=== PATIENT | female | born 1990 | race Caucasian/White ===

== ENCOUNTER 2017-02-23 14:03 | Inpatient (IN) | payer OTHER ==
[~2017-02-23] VITALS: Ht 167.6 cm; Wt 54.4 kg
[2017-02-23 16:16] LABS: *URINE HCG, QUAL NEGATIVE (NEGATIVE)
--- NOTE | 2017-02-23 16:25 | NUR ---
PRE ADMISSION 26 Year old female, alert and oriented x4, noted hyperverbal and restless. Patient admited from [facility] in [place], prior to admission there patient reports she is homeless. Patient reports prior to being homeless living with in an apartment with boyfriend. Patients vital signs: 129/77, p: 76, t: 98.0 r: 16 o2 sat: 100% room air. Patient reports allergies to: raglan, and keppra. Patient to be admitting [facility], patient was seen and examined by Dr. de la garza at intake office. Will continue to monitor closely.
[2017-02-23 16:28] LABS: *AMPHETAMINE, URINE NEGATIVE (NEGATIVE); *BARBITURATE, URINE POSITIVE (NEGATIVE); *CANNABINOID, URINE NEGATIVE (NEGATIVE); *COCCAINE, URINE NEGATIVE (NEGATIVE); *OPIATE, URINE NEGATIVE (NEGATIVE); *PHENCYCLIDINE SCREEN,URINE NEGATIVE (NEGATIVE)
--- NOTE | 2017-02-23 16:35 | NUR ---
ADMISSION patient arrived to [facility] at 1635, noted with steady gait, ambulating ad sharon. patients body search completed by female intake staff no contraband found. Patients body assessment completed patient with intact skin, has tape pelletier on left arm per patient had a mid line there that was removed on discharge from [facility] in [place]. No bruising, discoloration or skin break down noted. Patient with multiple tattoos on right arm. Patient reports substance use of: Xanax, began using at the age of 19, reports using 6, 4 mg tabs daily IV for six months, last used 01/26/2017, heroin began using at [place] age of 16 10-12 grams IV since november 2015, last used 02/12/2017, methamphetamine began using at the age of 19 has been consuming 1gram-3 grams once a week since november 2015, last used on 02/12/2017, reports occasional use of cocaine. Per patient she was a treatment center ([facility] [place]) on 02/13/2017, where she was administered Klonopin, unknown amount, per patient was there for a few hours, then left to: [facility], patient reports she was there for 7 days (02/13/2017-02/21/2017), from there patient reports she was taken to the hospital because she was having seizures, was at the hospital on ( 02/21/2017-02/23/2017), reports at the hospital she was being administered Valium, unknown strength. Patient brought with her discharge instructions from: [facility] in [place], with new prescriptions, patient currently states she take Prilosec 20mg PO In the morning, but does not recall last time she took it. Patient reports past medical history of: anxiety, and bipolar d/o diagnosed at the age of 14. Patient patient her primary care physician is Dr. Hema Hughes in [facility]. Patient reports she has had 15 episodes of seizures d/t withdrawal, per patient she has an aura before she has a seizure. Patient reports past medical history of: anxiety and bipolar d/o both diagnosed at the age of 14. Patient reports both parent have history of substance abuse, and brother has history of substance abuse. Patient weights 5 feet 6 inches and weighs 120 lbs. Patients pupils are dilated, respirations are even and unlabored, no SOB, lungs clear upon auscultating. Abdomen is soft and non distended. No episodes of vomiting noted, bowel sounds heard in all quadrants. Fall and seizure precautions observed at all times, psychiatrist notified of new admission, will continue to monitor closely.
[2017-02-23 17:00] VITALS: BP 129/77
[2017-02-23] MEDS ORDERED: OMEP20TA20 PO (17:13)
[2017-02-23] MEDS ORDERED: PHEN100C4 PO (17:13)
--- NOTE | 2017-02-23 17:13 | NUR ---
ONE TIME DOSE OF PHENOBARBITAL Per patient reporting she feels an aura and is about to have a seizure, patient presenting with: restlessness, flushed, moderately dilated pupils, mild bone and joint aches, stomach cramps, increase anxiety and fine tremors with ciwa score of: 10 and cow score of: 13. Per MD patient to receive a one time dose of phenobarbital 90mg PO as ordered, by MD. Per Md to continue to monitor closely. patient placed on 1:1 for safety precautions, fall and seizure precautions in place. will continue to monitor.
[2017-02-23] MEDS ORDERED: CARB200T PO (17:16)
--- NOTE | 2017-02-23 17:48 | NUR ---
PRN SUBUTEX Per MD for patient with cow score of: 13, patient to be administered PRN Subutex 4mg SL, medication was administered as ordered, will monitor effectiveness.
--- NOTE | 2017-02-23 18:23 | NUR ---
PRN VALIUM Patient continues to verbalize she feels she is about to have a seizure. Patient reassessed noted with tremors that can be felt but nto seen, mild nausea, sweats, moderate anxiety, fidgety with ciwa score of: 12, as per MD goldberg to administer Valium 10mg PO as ordered, medication administered as ordered, continues on 1:1 sitter for safety precautions, will continue to monitor closely. Will endorse to night auditor nurse, to monitor effectiveness of valium.
[2017-02-23 18:30] LABS: BASOPHILS % (AUTO) 0.5 % (0.0-2.0); EOSINOPHILS # (AUTO) 0.1 K/uL (0.0-0.7); HEMATOCRIT 35.2 % (37-47); HEMOGLOBIN 11.4 G/DL (12.0-16.0); LYMPHOCYTES # (AUTO) 2.4 K/UL (0.8-4.8); LYMPHOCYTES % (AUTO) 30.8 % (20.5-51.5); MEAN CORPUSCULAR HEMOGLOBIN 28.3 UUG (27.0-31.0); MEAN CORPUSCULAR HGB CONC 33 g/dL (32.0-37.0); MONOCYTES # (AUTO) 0.7 K/UL (0.1-1.30); MONOCYTES % (AUTO) 8.4 % (0.0-11.0); NEUTROPHILS # (AUTO) 4.6 K/UL (1.8-8.9); NEUTROPHILS % (AUTO) 59.3 % (38.5-71.5); PLATELET COUNT (AUTO) 359 K/UL (150-450); RED BLOOD CELL COUNT(AUTO) 4.04 MIL/UL (4.2-5.4); WHITE BLOOD COUNT (AUTO) 7.8 K/UL (4.0-11.2)
[2017-02-23 18:37] LABS: ALANINE AMINOTRANSFERASE 24 U/L (14-59); ALKALINE PHOSPHATASE 66 U/L (50-136); ASPARTATE AMINOTRANSFERASE 14 U/L (15-37); BILIRUBIN,TOTAL 0.1 mg/dL (0.2-1.0); CARBON DIOXIDE 34 mmol/L (21-32); CHLORIDE 105 mmol/L (98-107); CREATININE 0.5 mg/dL (0.6-1.3); ETHANOL < 3 MG/DL (0-0); GLUCOSE 84 mg/dL (74-106); MAGNESIUM 1.9 mg/dL (1.8-2.4); PHENYTOIN (DILANTIN) 14.9 ug/mL (10.0-20.0); POTASSIUM 4.5 mmol/L (3.5-5.1); TOTAL PROTEIN, SERUM 6.4 g/dL (6.4-8.2); UREA NITROGEN, BLOOD 11 mg/dL (7-18)
--- NOTE | 2017-02-23 18:38 | NUR ---
SUBUTEX REASSESSMENT Medication effective, patient with cow score of: 11, no bone or joint aches, decrease in tremors, will continue to monitor closely.
--- NOTE | 2017-02-23 18:54 | NUR ---
END OF SHIFT/VALIUM REASSESSMENT Patient with admitting Dx: opiate/bzo dependence. Patient currently with 1: 1 sitter at bedside for safety precautions, patient on fall and seizure precautions observed at all times. Padded side rails And up x2. Per Dr. frederic Arshad to be reassessed with in 30 minutes of administration, patient was reassessed and ciwa score remains at 12, MD is aware. Patient is scheduled to begin a 5 day phenobarbital taper tomorrow, and 5 day Subutex taper tomorrow, has PRN Valium. first induction dose of phenobarbital administered at 1713 as per Md orders, will monitor cow/ciwa/vital signs every two hours. Patient endorsement report given to package liner nurse, all pertinent information discussed. fall and seizure precaution observed at all times.
[2017-02-23 18:59] LABS: THYROID STIMULATING HORMONE 1.626 mIU/mL (0.358-3.740)
--- NOTE | 2017-02-23 19:25 | NUR ---
Start of Shift Pt is a 26 year old female admitted for Benzo/opiate dependence, placed 5 day Phenobarbital and 5 day Subutex, to be started on 02/24/2017. Pt reported use of Xanax 6 (4mg) IV daily, Heroin 10 -12 g IV daily, meth 1-3g IV and occasional use of cocaine and crack. PMH: anxiety, dipolar disorder, Hepatitis C and seizure history. Pt reports allergies to baclofen, levetiracetam and metoclopramide. Upon assessment, pt is in room, in bed alert/oriented x3, reports feeling body aches throughout body, reports feeling anxious, speaks in loud tone of voice, respirations even/unlabored, reports feeling nauseous, no vomiting episodes, skin flushed, medications due, sitter at bedside for safety, safety precautions in place, will continue to monitor.
--- NOTE | 2017-02-23 19:33 | NUR ---
Valium 10mg x1 CIWA 16 pt reports feeling anxious, speech is rapid, pt is fidgeting, reports nausea, tremors felt, visible sweat, flushed face, sensitivity to light. Valium 10mg x1 administered. Safety precautions in place, will continue to monitor.
[2017-02-23 20:00] VITALS: BP 102/70
--- NOTE | 2017-02-23 20:13 | NUR ---
Robaxin 750mg PRN administered for complaints of body aches. Safety measures in place, will continue to monitor.
--- NOTE | 2017-02-23 20:30 | NUR ---
Pt continues with a CIWA 16, continues to report anxiety, speech is rapid, pt is fidgeting, is restless with body aches, tremors felt, visible sweat, flushed face, sensitivity to light. Ativan 2mg/1ml inj x1 and Toradol 30mg/1ml inj PRN administered. Safety precautions in place, will continue to monitor.
--- NOTE | 2017-02-23 21:00 | NUR ---
Ativan and Toradol effective. Pt reports less body aches. Is in bed, with sitter at bed side. CIWA 11 and COWS 10
[2017-02-23 22:00] VITALS: BP 103/73
--- NOTE | 2017-02-23 22:38 | NUR ---
Seizure MARINE STEAM FITTER notified nurse to room due to pt stating I dont feel well. Nurse at bedside immediately pt is unresponsive, Charge nurse called to pt room. At 2237, Pt experienced first seizure that lasted approximately 1 minute pt placed on left side, Non rebreather mask on with intermittent suction throughout all seizure episodes. HR 116, O2 100% At 2239, rapid response called, Pt experienced second seizure that lasted approximately 2 minutes, made aware, with orders to give Ativan IM 2mg. Rapid response team and house sup on the unit at 2241. At 2243, pt experienced third seizure that lasted approximately 1 minute, non rebreather mask with intermittent suctioning. HR 124, O2 100% At 2246, Pt experienced fourth seizure that lasted approximately 1 minute, Ativan 2mg IM administered in right glut at 2247. HR 136, O2 100% At 2250, pt experienced fifth seizure that lasted approximately 45 seconds. BP 129/62, HR 112, O2 100% At 2252, pt experienced sixth seizure that lasted approximately 1 minute and 15 seconds, non rebreather mask with intermittent suctioning. HR 117, O2 100% At 2256, pt experienced seventh seizure that lasted approximately 1 minute 30 seconds. made aware with new order of Ativan. Ativan 2mg IM administered in right glut at 2257. HR 131, O2 100% At 2303, pt experienced eighth seizure that lasted approximately 45 seconds. HR 118, O2 100% At 2306, pt experienced ninth seizure that lasted approximately 1 min 6 seconds. HR 106, O@ 100%. MD made aware of ineffective Ativan, New order to transfer pt to the ER. Pt experienced a total of 9 seizures, pt in postictal state which lasted about 8 minutes, then was AAOx3 and knew where she was and why. BP 110/57, HR 126, O2 100%
[2017-02-23 22:51] VITALS: BP 129/62
[2017-02-23 23:15] VITALS: BP 110/57
--- NOTE | 2017-02-23 23:20 | NUR ---
Pt transferred to the ER. Report given to ER nurse.
[2017-02-24] MEDS ORDERED: POLY255P2 PO (01:55)
[2017-02-24] MEDS ORDERED: DIPH25CA83 PO (01:55)
[2017-02-24] MEDS ORDERED: PHEN97.22 PO (01:55)
[2017-02-24] MEDS ORDERED: PHEN60TA11 PO ×2 (01:55)
[2017-02-24] MEDS ORDERED: DICY20TA11 PO (01:55)
[2017-02-24] MEDS ORDERED: MAGN400O6 PO (01:55)
[2017-02-24] MEDS ORDERED: PHEN100C4 PO (01:55)
[2017-02-24] MEDS ORDERED: PANT40TA4 PO (01:55)
[2017-02-24] MEDS ORDERED: ZOFRAN IM (01:55)
[2017-02-24] MEDS ORDERED: CLON0.1T PO (01:55)
[2017-02-24] MEDS ORDERED: DIAZ5TAB4 PO (01:55)
[2017-02-24] MEDS ORDERED: LORAZEPAM IM (01:55)
[2017-02-24] MEDS ORDERED: ACET-2154 PO (01:55)
[2017-02-24] MEDS ORDERED: BUPR2TAB3 SL (01:55)
[2017-02-24] MEDS ORDERED: IBUP-1955 PO (01:55)
[2017-02-24] MEDS ORDERED: LOPE2TAB25 PO ×2 (01:55)
[2017-02-24] MEDS ORDERED: MULT1TAB73 PO (01:55)
[2017-02-24] MEDS ORDERED: MAG30ORA PO (01:55)
[2017-02-24] MEDS ORDERED: METH-406 PO (01:55)
[2017-02-24] MEDS ORDERED: DIAZ10TA4 PO (01:55)
[2017-02-24] MEDS ORDERED: BUPR8TAB4 SL ×4 (01:55)
[2017-02-24] MEDS ORDERED: PHEN30TA40 PO ×3 (01:55)
== END 2017-02-23 23:20 | disposition short-term general hospital (02) | DRG 897 ==
LOC: SRC 15:21
PROVIDERS: ADMIT Internal Medicine; ATTEND Internal Medicine
PROC: HZ2ZZZZ Detoxification Services for Substance Abuse Treatment (ICD-10-PCS; principal; 2017-02-23)
DX: F13.232 Sedative, hypnotic or anxiolytic dependence with withdrawal with perceptual disturbance (principal); F11.23 Opioid dependence with withdrawal; G40.919 Epilepsy, unspecified, intractable, without status epilepticus; F15.20 Other stimulant dependence, uncomplicated; F31.9 Bipolar disorder, unspecified; K27.7 Chronic peptic ulcer, site unspecified, without hemorrhage or perforation; Z91.5 Personal history of self-harm; Z81.1 Family history of alcohol abuse and dependence; Z59.0 Homelessness; K21.9 Gastro-esophageal reflux disease without esophagitis; F17.210 Nicotine dependence, cigarettes, uncomplicated; F90.9 Attention-deficit hyperactivity disorder, unspecified type; B19.20 Unspecified viral hepatitis C without hepatic coma; I49.9 Cardiac arrhythmia, unspecified
CPT/HCPCS: 80307; 83735; 84443; 84703; 85025; 86592; 86705; 86803; 87340; 87806; 93005; A4663; G0480; J1885; J2060; J8499

== ENCOUNTER 2017-02-23 23:21 | Inpatient (IN) | payer OTHER ==
[~2017-02-23] VITALS: Ht 162.6 cm; Wt 61.2 kg
[~2017-02-23 23:21] MED LIST: CARB200T PO; OMEP20TA20 PO; PHEN100C4 PO
[2017-02-23] MEDS ORDERED: IV NORMAL SALINE 1000 ML BAG IV ONE (23:30)
[2017-02-23 23:54] LABS: BASOPHILS % (AUTO) 0.5 % (0.0-2.0); EOSINOPHILS # (AUTO) 0.1 K/uL (0.0-0.7); EOSINOPHILS % (AUTO) 1.1 % (0.0-7.0); HEMATOCRIT 33.6 % (37-47); HEMOGLOBIN 10.9 G/DL (12.0-16.0); LYMPHOCYTES # (AUTO) 3.1 K/UL (0.8-4.8); LYMPHOCYTES % (AUTO) 33.3 % (20.5-51.5); MEAN CORPUSCULAR HEMOGLOBIN 28.3 UUG (27.0-31.0); MEAN CORPUSCULAR HGB CONC 33 g/dL (32.0-37.0); MEAN CORPUSCULAR VOLUME 87.1 FL (81.0-99.0); MONOCYTES # (AUTO) 0.9 K/UL (0.1-1.30); MONOCYTES % (AUTO) 9.8 % (0.0-11.0); NEUTROPHILS # (AUTO) 5.2 K/UL (1.8-8.9); NEUTROPHILS % (AUTO) 55.3 % (38.5-71.5); PLATELET COUNT (AUTO) 332 K/UL (150-450); RED BLOOD CELL COUNT(AUTO) 3.86 MIL/UL (4.2-5.4); WHITE BLOOD COUNT (AUTO) 9.3 K/UL (4.0-11.2)
[2017-02-24 00:08] LABS: ALANINE AMINOTRANSFERASE 24 U/L (14-59); ALKALINE PHOSPHATASE 63 U/L (50-136); ASPARTATE AMINOTRANSFERASE 16 U/L (15-37); BILIRUBIN,DIRECT < 0.1 mg/dL (0.0-0.2); BILIRUBIN,TOTAL 0.1 mg/dL (0.2-1.0); CARBON DIOXIDE 33 mmol/L (21-32); CHLORIDE 105 mmol/L (98-107); CREATININE 0.5 mg/dL (0.6-1.3); GLUCOSE 85 mg/dL (74-106); PHENOBARBITAL 26.1 ug/mL (15.0-39.0); POTASSIUM 3.8 mmol/L (3.5-5.1); TOTAL PROTEIN, SERUM 6.2 g/dL (6.4-8.2); UREA NITROGEN, BLOOD 13 mg/dL (7-18); VALPROIC ACID < 3 ug/mL (50-100)
[2017-02-24 00:09] LABS: ETHANOL < 3 MG/DL (0-0)
--- NOTE | 2017-02-24 00:40 | NUR ---
PATIENT IS UNABLE TO PROVIDE URINE. F/C INSERTED USING STERILE TECHNIQUE. URNE SAMPLE SENT.
[2017-02-24 00:46] LABS: *BILIRUBIN,URIN NEGATIVE (NEGATIVE); *BLOOD, URINE NEGATIVE (NEGATIVE); *CLARITY,URINE CLEAR (CLEAR); *COLOR,URINE YELLOW (YELLOW); *KETONES,URINE NEGATIVE (NEGATIVE); *PROTEIN,URINE NEGATIVE (NEGATIVE); *UROBILINOGEN,URINE 0.2 E.U./dl (NORMAL); BACTERIA,URINE NONE SEEN /HPF (NONE SEEN); LEUKOCYTE ESTERASE ,URINE NEGATIVE (NEGATIVE); NITRITE, URINE NEGATIVE (NEGATIVE); UGLUCOSE NEGATIVE (NEGATIVE)
[2017-02-24 00:47] LABS: *URINE HCG, QUAL NEGATIVE (NEGATIVE); RBC,URINE NONE SEEN /HPF (0-3); SQUAMOUS EPITHELIAL CELL,UR NONE SEEN /HPF (NONE SEEN); WBC,URINE 0-3 /HPF (0-3)
[2017-02-24 01:16] LABS: *AMPHETAMINE, URINE NEGATIVE (NEGATIVE); *BARBITURATE, URINE POSITIVE (NEGATIVE); *CANNABINOID, URINE NEGATIVE (NEGATIVE); *COCCAINE, URINE NEGATIVE (NEGATIVE); *OPIATE, URINE NEGATIVE (NEGATIVE); *PHENCYCLIDINE SCREEN,URINE NEGATIVE (NEGATIVE)
--- NOTE | 2017-02-24 01:25 | NUR ---
PATIENT BROUGHT TO CT SCAN.
--- NOTE | 2017-02-24 01:40 | NUR ---
DR. VASQUEZ NOTIFED OF BP.
[2017-02-24] MEDS ORDERED: IV NORMAL SALINE 1000 ML BAG IV ONE (01:45)
[2017-02-24] MEDS ORDERED: CLON0.1T PO (01:55)
[2017-02-24] MEDS ORDERED: PHEN97.22 PO (01:55)
[2017-02-24] MEDS ORDERED: MAG30ORA PO (01:55)
[2017-02-24] MEDS ORDERED: BUPR2TAB3 SL (01:55)
[2017-02-24] MEDS ORDERED: MULT1TAB73 PO (01:55)
[2017-02-24] MEDS ORDERED: PANT40TA4 PO (01:55)
[2017-02-24] MEDS ORDERED: BUPR8TAB4 SL ×4 (01:55)
[2017-02-24] MEDS ORDERED: ZOFRAN IM (01:55)
[2017-02-24] MEDS ORDERED: DIPH25CA83 PO (01:55)
[2017-02-24] MEDS ORDERED: LORAZEPAM IM (01:55)
[2017-02-24] MEDS ORDERED: DIAZ5TAB4 PO (01:55)
[2017-02-24] MEDS ORDERED: MAGN400O6 PO (01:55)
[2017-02-24] MEDS ORDERED: POLY255P2 PO (01:55)
[2017-02-24] MEDS ORDERED: IBUP-1955 PO (01:55)
[2017-02-24] MEDS ORDERED: ACET-2154 PO (01:55)
[2017-02-24] MEDS ORDERED: LOPE2TAB25 PO ×2 (01:55)
[2017-02-24] MEDS ORDERED: PHEN30TA40 PO ×3 (01:55)
[2017-02-24] MEDS ORDERED: PHEN100C4 PO (01:55)
[2017-02-24] MEDS ORDERED: PHEN60TA11 PO ×2 (01:55)
[2017-02-24] MEDS ORDERED: METH-406 PO (01:55)
[2017-02-24] MEDS ORDERED: DICY20TA11 PO (01:55)
[2017-02-24] MEDS ORDERED: DIAZ10TA4 PO (01:55)
--- NOTE | 2017-02-24 02:10 | NUR ---
Pt. admitted to TELE , under care of Dr. RUSH Belongs List completed
[2017-02-24 03:53] VITALS: BP 100/61
[2017-02-24] MEDS ORDERED: LORAZEPAM 2 MG/1 ML VIAL IV PRN ×2 (05:15)
--- NOTE | 2017-02-24 05:25 | NUR ---
NOTIFY DR RUSH REGARDING THE AGITATION AND ANXIETY EPISODES WITH ORDERS.
[2017-02-24] MEDS ORDERED: ACETAMINOPHEN 325 MG TABLET PO PRN (05:45)
[2017-02-24] MEDS ORDERED: POLYETHYLENE GLYCOL 3350 238 GM POWDER PO PRN (05:45)
[2017-02-24] MEDS ORDERED: METHOCARBAMOL 750 MG TABLET PO PRN (05:45)
[2017-02-24] MEDS ORDERED: IBUPROFEN 600 MG TABLET PO PRN (05:45)
[2017-02-24] MEDS ORDERED: [UNRECOGNIZED DRUG - REMARK] PO PRN (05:45)
[2017-02-24] MEDS ORDERED: MAGNESIUM HYDROXIDE 30 ML LIQUID UDC PO PRN (05:45)
[2017-02-24] MEDS ORDERED: MAG HYDROX/AL HYDROX/SIMETH 30 ML LIQUID UDC PO PRN (05:45)
[2017-02-24] MEDS ORDERED: LORAZEPAM 2 MG/1 ML VIAL ONE (05:46)
[2017-02-24] MEDS ORDERED: ONDANSETRON 4 MG/2 ML VIAL IV PRN (06:00)
--- NOTE | 2017-02-24 06:13 | NUR ---
PATIENT SLEPT FOR FEW HOURS, NO SOB NO CHEST PAIN, RHYTHM IS SINUS RHYTHM 92, STILL WITH EPISODE OF ANXIETY, WILL MEDICATE ORDERED, BODY CHECK WAS DONE, SKIN CLEAR, WITH TATOO NOTED ON WHOLE LEFT ARM , AND OTHER PLACES, NO FURTHER EPISODES OF SEIZURES NOTED, PADDED SIDERAILS IN PLACE, CALL LIGHT WITHIN REACH. CONT TO MONITOR.
[2017-02-24] MEDS: IV D5/ 0.9% NACL 1,000 ML IV PRN ×2 (06:22→21:51)
--- NOTE | 2017-02-24 07:00 | NUR ---
Received report from assistant shift supervisor, bed in low position, side rails up x2. Patient is sleeping. No evidence of distress noted.
[2017-02-24] MEDS ORDERED: diphenhydrAMINE 50 MG CAPSULE PO PRN (07:30)
[2017-02-24] MEDS: PANTOPRAZOLE SODIUM 40 MG TABLET.DR PO SCH (07:47)
[2017-02-24] MEDS: MULTIVITAMINS,THERAPEUTIC TABLET PO SCH (08:00)
[2017-02-24] MEDS: PHENYTOIN SODIUM EXTENDED 100 MG CAPSULE.SA PO SCH ×2 (08:00→17:38)
[2017-02-24] MEDS: CARBAMAZEPINE 200 MG TABLET PO SCH ×2 (08:00→17:38)
[2017-02-24] MEDS ORDERED: MIRALAX 17 GM POWD.PACK PO PRN (08:16)
[2017-02-24] MEDS ORDERED: PHENOBARBITAL 60 MG TABLET PO SCH ×2 (09:00)
[2017-02-24] MEDS ORDERED: Medication Not On Formulary EA (Multivitamins (Multivitamin) 1 EACH) PO SCH (09:00)
[2017-02-24] MEDS ORDERED: KETOROLAC TROMETHAMINE 15 MG INJ IVP ONE (09:30)
[2017-02-24] MEDS ORDERED: DIAZEPAM 10 MG TABLET PO PRN ×2 (11:15)
[2017-02-24] MEDS ORDERED: DIAZEPAM 5 MG TABLET PO PRN (11:15)
[2017-02-24] MEDS: PHENOBARBITAL 60 MG TABLET PO SCH ×3 (13:19→21:51)
[2017-02-24] MEDS ORDERED: DIAZEPAM 10 MG TABLET PO STA (16:13)
[2017-02-24 18:29] VITALS: BP 114/71
--- NOTE | 2017-02-24 19:08 | NUR ---
Patient has had multiple episodes of extreme anxiety, with withdrawal symptoms of muscle aches, crying, running nose, nausea, pain, tremors and weakness. Patient was given a 1 time toradol injection, and PRN Valium. Patient is currently calm, in bed, and resting with no distress at this time.
[2017-02-24 20:00] VITALS: BP 97/59
[2017-02-25] MEDS ORDERED: PANTOPRAZOLE SODIUM 40 MG TABLET.DR PO ONE (06:15)
[2017-02-25 06:21] LABS: BILIRUBIN,TOTAL 0.1 mg/dL (0.2-1.0); CREATININE 0.6 mg/dL (0.6-1.3); MAGNESIUM 1.9 mg/dL (1.8-2.4); PHOSPHOROUS 4.4 mg/dL (2.5-4.9); POTASSIUM 4.6 mmol/L (3.5-5.1); TOTAL PROTEIN, SERUM 6.1 g/dL (6.4-8.2)
--- NOTE | 2017-02-25 06:30 | NUR ---
PT SLEPT WELL, IN NO ACUTE DISTRESS. CIWA ASSESSMENT DONE Q4H ORDERED. PATIENT EXHIBITED MILD ANXIETY, NO EPISODES OF SEIZURES. IVF RUNNING, NO INFILTRATION NOTED. BED ALARM ON, CALL LIGHT WITHIN REACH. WILL CONTINUE TO MONITOR.
[2017-02-25] MEDS: PANTOPRAZOLE SODIUM 40 MG TABLET.DR PO SCH (06:43)
[2017-02-25 07:05] LABS: BASOPHILS % (AUTO) 0.5 % (0.0-2.0); EOSINOPHILS # (AUTO) 0.1 K/uL (0.0-0.7); EOSINOPHILS % (AUTO) 1.1 % (0.0-7.0); HEMATOCRIT 36.4 % (31.2-41.9); HEMOGLOBIN 11.9 g/dL (10.9-14.3); LYMPHOCYTES # (AUTO) 2.6 K/uL (20.0-40.0); LYMPHOCYTES % (AUTO) 33.1 % (20.5-51.5); MEAN CORPUSCULAR HEMOGLOBIN 28.6 uug (24.7-32.8); MEAN CORPUSCULAR HGB CONC 33 g/dL (32.3-35.6); MEAN CORPUSCULAR VOLUME 87.9 fL (75.5-95.3); MONOCYTES # (AUTO) 0.5 K/uL (2.0-10.0); MONOCYTES % (AUTO) 6.7 % (0.0-11.0); NEUTROPHILS # (AUTO) 4.6 K/uL (1.8-8.9); NEUTROPHILS % (AUTO) 58.6 % (38.5-71.5); PLATELET COUNT (AUTO) 330 K/uL (179-408); RED BLOOD CELL COUNT(AUTO) 4.14 MIL/uL (3.63-4.92); WHITE BLOOD COUNT (AUTO) 7.8 K/uL (3.8-11.8)
--- NOTE | 2017-02-25 07:20 | NUR ---
RECEIVED REPORT FROM STAPLING MACHINE OPERATOR NURSE, PATIENT IN BED ASLEEP, NO EVIDENCE OF DISTRESS NOTED. BED IN LOW POSITION, SIDE RAILS UP X2, SUCTION EQUIPMENT AT BEDSIDE, PADDING ON SIDE RAILS.
[2017-02-25] MEDS: MULTIVITAMINS,THERAPEUTIC TABLET PO SCH (08:02)
[2017-02-25] MEDS: PHENOBARBITAL 60 MG TABLET PO SCH ×2 (08:02→14:07)
[2017-02-25] MEDS: CARBAMAZEPINE 200 MG TABLET PO SCH (08:02)
[2017-02-25] MEDS: PHENYTOIN SODIUM EXTENDED 100 MG CAPSULE.SA PO SCH (08:02)
[2017-02-25] MEDS ORDERED: DIAZEPAM 5 MG TABLET PO ONE (10:50)
[2017-02-25 11:40] VITALS: BP 100/62
--- NOTE | 2017-02-25 13:00 | NUR ---
PATIENT WAS HAVING EPISODES OF SEVERE ANXIETY ABOUT LEAVING AND THREATENED TO AMA. PATIENT WAS ON THE PHONE YELLING AND SCREAMING CONSISTENTLY WITH CRYING EPISODES. PATIENT WAS OFFERED VALIUM FOR ANXIETY/AGITATION.
[2017-02-25] MEDS ORDERED: PHEN100C4 PO (13:05)
--- NOTE | 2017-02-25 16:22 | NUR ---
REMOVED PATIENT'S IV, DISCONTINUED MUSHROOM SPAWN MAKER, AND TRANSPORTED PATIENT VIA WHEELCHAIR TO ADMISSIONS OFFICE OF [facility].
[2017-03-03] MEDS ORDERED: CARB200T8 PO ×2 (20:31)
[2017-03-03] MEDS ORDERED: GABA-536 PO (20:31)
[2017-03-03] MEDS ORDERED: IBUP-1955 PO (20:31)
[2017-03-03] MEDS ORDERED: HYDR-3895 PO (20:31)
[2017-03-03] MEDS ORDERED: NITR100C11 PO (20:31)
[2017-03-03] MEDS ORDERED: PHEN100C4 PO (20:31)
== END 2017-02-25 16:20 | DRG 897 ==
LOC: ER 23:22 → TELE 02-24 02:00 → MED 02-25 12:00
PROVIDERS: ADMIT Internal Medicine; ATTEND Nurse Practitioner Acute Care
PROC: HZ2ZZZZ Detoxification Services for Substance Abuse Treatment (ICD-10-PCS; principal; 2017-02-24)
DX: F13.239 Sedative, hypnotic or anxiolytic dependence with withdrawal, unspecified (principal); F11.23 Opioid dependence with withdrawal; F31.2 Bipolar disorder, current episode manic severe with psychotic features; K27.7 Chronic peptic ulcer, site unspecified, without hemorrhage or perforation; G40.901 Epilepsy, unspecified, not intractable, with status epilepticus; R00.0 Tachycardia, unspecified; Z91.5 Personal history of self-harm; Z90.49 Acquired absence of other specified parts of digestive tract; F17.210 Nicotine dependence, cigarettes, uncomplicated; Z59.0 Homelessness; B19.20 Unspecified viral hepatitis C without hepatic coma; K21.9 Gastro-esophageal reflux disease without esophagitis; F90.9 Attention-deficit hyperactivity disorder, unspecified type; F15.23 Other stimulant dependence with withdrawal; Z88.8 Allergy status to other drugs, medicaments and biological substances
CPT/HCPCS: 36415; 70450; 80164; 80184; 80307; 80345; 80346; 83550; 83735; 84100; 84703; 85025; 85730; 93005; A4663; G0480; J1885; J2060; J2405; J7030; J7042; J8499

== ENCOUNTER 2017-02-25 17:40 | Inpatient (IN) | payer OTHER ==
[~2017-02-25] VITALS: Ht 167.6 cm; Wt 56.7 kg
[~2017-02-25 17:40] MED LIST changes: +ACET-2154 PO; +BUPR2TAB3 SL; +BUPR8TAB4 SL; +CLON0.1T PO; +DIAZ10TA4 PO; +DIAZ5TAB4 PO; +DICY20TA11 PO; +DIPH25CA83 PO; +IBUP-1955 PO; +LOPE2TAB25 PO; +LORAZEPAM IM; +MAG30ORA PO; +MAGN400O6 PO; +METH-406 PO; +MULT1TAB73 PO; -OMEP20TA20 PO; +PANT40TA4 PO; +PHEN30TA40 PO; +PHEN60TA11 PO; +PHEN97.22 PO; +POLY255P2 PO; +ZOFRAN IM
[2017-02-25 18:10] VITALS: BP 122/83
--- NOTE | 2017-02-25 18:10 | NUR ---
PRE ASSESSMENT: PT IN INTAKE. SHE PRESENTS A/O X 4. SHE IS READMITTED FROM MEDICAL FLOOR. SHE STATES THEY GAVE HER ATIVAN AND PHENO ON 2ND FLOOR. SHE STATES SHE FEELS OK AT THIS TIME VSS. WILL ENDORSE TO DOPE AND FABRIC WORKER NURSE.
[2017-02-25 18:13] LABS: *URINE HCG, QUAL NEGATIVE (NEGATIVE)
[2017-02-25 18:29] LABS: *AMPHETAMINE, URINE NEGATIVE (NEGATIVE); *BARBITURATE, URINE POSITIVE (NEGATIVE); *CANNABINOID, URINE NEGATIVE (NEGATIVE); *COCCAINE, URINE NEGATIVE (NEGATIVE); *OPIATE, URINE NEGATIVE (NEGATIVE); *PHENCYCLIDINE SCREEN,URINE NEGATIVE (NEGATIVE)
[2017-02-25] MEDS ORDERED: MAGNESIUM HYDROXIDE 30 ML LIQUID UDC PO PRN (18:30)
[2017-02-25] MEDS ORDERED: MIRALAX 17 GM POWD.PACK PO PRN (18:30)
[2017-02-25] MEDS ORDERED: LOPERAMIDE HCL 2 MG CAPSULE PO PRN ×2 (18:30)
[2017-02-25] MEDS ORDERED: DIAZEPAM 5 MG TABLET PO PRN (18:30)
[2017-02-25] MEDS ORDERED: DIAZEPAM 10 MG TABLET PO PRN (18:30)
[2017-02-25] MEDS ORDERED: ONDANSETRON 4 MG/2 ML VIAL IM PRN (18:30)
[2017-02-25] MEDS ORDERED: NICOTINE POLACRILEX 4 MG GUM-PK OF TEN BC PRN (18:30)
[2017-02-25] MEDS ORDERED: DICYCLOMINE HCL 20 MG TABLET PO PRN (18:30)
[2017-02-25] MEDS ORDERED: diphenhydrAMINE 50 MG CAPSULE PO PRN (18:30)
[2017-02-25] MEDS ORDERED: MAG HYDROX/AL HYDROX/SIMETH 30 ML LIQUID UDC PO PRN (18:30)
[2017-02-25] MEDS ORDERED: ACETAMINOPHEN 325 MG TABLET PO PRN (18:30)
[2017-02-25] MEDS ORDERED: IBUPROFEN 600 MG TABLET PO PRN (18:30)
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
[2017-02-25] MEDS: PHENOBARBITAL 60 MG TABLET PO SCH ×2 (19:59→23:27)
[2017-02-25 20:00] VITALS: BP 125/80
[2017-02-25] MEDS: DIAZEPAM 10 MG TABLET PO PRN (20:24)
[2017-02-25] MEDS: BUPRENORPHINE HCL 2 MG TAB.SUBL SL PRN (20:25)
[2017-02-25] MEDS: PHENYTOIN SODIUM EXTENDED 100 MG CAPSULE.SA PO SCH (20:25)
[2017-02-25] MEDS: METHOCARBAMOL 750 MG TABLET PO PRN (20:25)
--- NOTE | 2017-02-25 20:25 | NUR ---
PRN MEDICATION Patient received Valium 10 mg PO at 2024 for Benzo withdrawal with CIWA 13. Patient received SUBUTEX 4mg SL at 2024 for opiate withdrawal with COWS 12. Patient received Robaxin 750 mg PO at 2024 for Generalized body aches of a 6 out of 10.
[2017-02-25 21:11] LABS: BASOPHILS % (AUTO) 0.4 % (0.0-2.0); EOSINOPHILS # (AUTO) 0.1 K/uL (0.0-0.7); HEMATOCRIT 40.2 % (37-47); HEMOGLOBIN 12.9 G/DL (12.0-16.0); LYMPHOCYTES # (AUTO) 2.8 K/UL (0.8-4.8); LYMPHOCYTES % (AUTO) 31.1 % (20.5-51.5); MEAN CORPUSCULAR HEMOGLOBIN 28.2 UUG (27.0-31.0); MEAN CORPUSCULAR HGB CONC 32 g/dL (32.0-37.0); MEAN CORPUSCULAR VOLUME 87.7 FL (81.0-99.0); MONOCYTES # (AUTO) 0.6 K/UL (0.1-1.30); MONOCYTES % (AUTO) 6.3 % (0.0-11.0); NEUTROPHILS # (AUTO) 5.4 K/UL (1.8-8.9); NEUTROPHILS % (AUTO) 61.2 % (38.5-71.5); PLATELET COUNT (AUTO) 441 K/UL (150-450); RED BLOOD CELL COUNT(AUTO) 4.58 MIL/UL (4.2-5.4); WHITE BLOOD COUNT (AUTO) 8.9 K/UL (4.0-11.2)
[2017-02-25 21:19] LABS: ALANINE AMINOTRANSFERASE 27 U/L (14-59); ALKALINE PHOSPHATASE 82 U/L (50-136); ASPARTATE AMINOTRANSFERASE 16 U/L (15-37); BILIRUBIN,TOTAL 0.1 mg/dL (0.2-1.0); CARBON DIOXIDE 35 mmol/L (21-32); CHLORIDE 102 mmol/L (98-107); CREATININE 0.6 mg/dL (0.6-1.3); GLUCOSE 103 mg/dL (74-106); MAGNESIUM 2.1 mg/dL (1.8-2.4); POTASSIUM 4.1 mmol/L (3.5-5.1); TOTAL PROTEIN, SERUM 7.6 g/dL (6.4-8.2); UREA NITROGEN, BLOOD 9 mg/dL (7-18)
--- NOTE | 2017-02-25 21:25 | NUR ---
REASSESSMENT OF PATIENT PATIENT REASSESSED ONE HOUR AFTER SUBUTEX 4 MG SL GIVEN FOR OPIATE WITHDRAWAL/ PATIENT WITH DECREASE IN COWS TO A 6. PATIENT ATTENDING DEE GROUP ON UNIT. PATIENT REASSESSED ONE HOUR AFTER GIVEN VALIUM 10 MG PO FOR BENZO WITHDRAWAL CIWA DECREASED TO 6 PATIENT REASSESSED ONE HOUR AFTER po ROBAXIN GIVEN FOR PAIN. PATIENT WITH DECREASED PAIN TO A 2.
[2017-02-25] MEDS: CARBAMAZEPINE 200 MG TABLET PO SCH (21:45)
[2017-02-25 21:57] LABS: ETHANOL < 3 MG/DL (0-0)
[2017-02-25 23:00] VITALS: BP 112/80
[2017-02-25 23:08] VITALS: BP 89/54
[2017-02-25 23:09] VITALS: BP 101/47
[2017-02-25 23:15] VITALS: BP 101/59
--- NOTE | 2017-02-25 23:30 | NUR ---
PATIENT ASSESSMENT PATIENT ATTENDED COMEDY SHOW ON UNIT. UPON COMPLETION OF THE GROUP, APPROXIMATELY 2255 PATIENT REQUESTING TO SMOKE A CIGARETTE. PER MD ORDER PATIENT NOT ALLOWED TO LEAVE UNIT TO SMOKE. PATIENT WAS GIVEN OPTION OF NICOTINE PATCH AND/OR NICOTINE GUM ORDERED. PATIENT STATED NO SHE DID NOT WANT THESE, AND THAT SHE WANTS TO SMOKE NOW. NURSE REITERATED THAT THIS WAS NOT AN OPTION. PATIENT VITAL SIGNS WERE ASSESSED BP 112/80, P 111, R 20, SPO2 98% ON RA T 98.4. PATIENT STATING "I NEED MEDICATION TO KNOCK ME OUT OR I AM GOING TO MAKE MYSELF HAVE A SEIZURE" NURSE WENT TO [facility] TO RETRIEVE 11 PM MEDICATION. UPON RETURN TO PATIENTS ROOM PATIENT WAS SHAKING HER LEGS AND CLOSING HER EYES WHILE LAYING IN HER BED. SHE WOULD NOT RESPOND TO NURSE CALLING HER NAME. THIS LASTED 25 SECONDS. CHARGE NURSE NOTIFIED IMMEDIATELY. DR BUCHANAN NOTIFIED IMMEDIATELY. PATIENT VITAL SIGNS CHECKED AT 2308 BP 89/54, P 102 R 16, SPO2 98% ON RA, PATIENT HOLDING LIMBS STIFFLY TO HER BODY. PATIENT VITAL SIGNS RECHECKED AT 2309 101/47, P 98, SPO2 96% ON RA, R 18. PATIENT PLACED ON ONE TO ONE FOR SAFETY. PATIENT AT 2311 GOT UP SAT UP, STATING SHE WANTED TO SMOKE DOESN'T KNOW WHY THE DOCTOR HAS TO TREAT HER THIS WAY AND REQUESTING HER MEDICATION. VITAL SIGNS RECHECKED BP 101/59, P 74 R 18, SPO2 98% ON RA. PATIENT DID NOT HAVE ANY POSTICTAL PERIOD S/P HER EPISODE. PATIENT DID NOT HAVE ANY INCONTINENCE, FOAMING AT THE MOUTH, PERIOD OF SLEEP, DISORIENTATION, OR CONFUSION, NO NAUSEA, VOMITING, OR HEADACHE. PATIENT IMMEDIATELY CHANGING HER CLOTHING, REQUESTING TO TAKE A SHOWER, AND STATING SHE JUST WANTS A CIGARETTE. PATIENT STATED AT 2325 THAT SHE FEELS SHE WAS DISPLAYING A TEMPER TANTRUM OR A PANIC ATTACK. PATIENT ACKNOWLEDGED HER "EPISODE" WAS DELIBERATE, REMEMBERING THE EPISODE FULLY, AND STATED SHE IS NOT USED TO NOT GETTING HER WAY. PATIENT TOOK A SHOWER ON 1:1 FOR SAFETY AND STATES SHE FEELS BETTER.
[2017-02-26] VITALS: BP 112/72
[2017-02-26] MEDS: CLONIDINE HCL 0.1 MG TABLET PO PRN (00:31)
[2017-02-26] MEDS: DIAZEPAM 10 MG TABLET PO PRN ×2 (00:31→12:03)
--- NOTE | 2017-02-26 00:31 | NUR ---
PRN MEDICATION PATIENT CIWA 12. PATIENT GIVEN VALIUM 10 MG PO FOR BENZO WITHDRAWAL. EFFECT PENDING. PATIENT GIVEN CLONIDINE 0.1 MG PO FOR ANXIETY WITH EFFECT PENDING
--- NOTE | 2017-02-26 01:31 | NUR ---
REASSESSMENT OF PATIENT PATIENT REASSESSED ONE HOUR AFTER GIVEN VALIUM 10 MG PO FOR BENZO WITHDRAWAL.CIWA 5 PATIENT REASSESSED ONE HOUR AFTER GIVEN CLONIDINE 0.1 MG PO FOR ANXIETY WITH NO CURRENT ANXIETY OBSERVED. PATIENT RESTING COMFORTABLY IN BED EYES CLOSED BREATHING EVEN AND UNLABORED. RESPIRATIONS 16.
[2017-02-26 04:00] VITALS: BP 90/56
--- NOTE | 2017-02-26 04:00 | NUR ---
CIWA/COWS deferred Patient CIWA/COWS deferred at 0400 due to sleep.
--- NOTE | 2017-02-26 06:52 | NUR ---
End of shift note Patient is a 26 year old female admitted to [facility] on 02-25-17 for benzo and opiate detox. Patient is a full code, on a regular diet, has allergies to Keppra, Reglan, and baclofen. She is on both fall and seizure precautions. She has long substance abuse history with first reported drug use at age 9. Patient has been using heroin since age 16. Current use up to 10-12 gm daily IV with last reported use 02-20-17. Patient using Xanax 12-16 mg daily with last reported use 02-20-17. Patient also using Methamphetamine 5gm daily IV with last use reported 02-20-17. Patient attended comedy show on unit. Displayed and verbalized unhappiness related to restriction of patio privilege for safety, as she wanted to smoke. Patient was given option of nicotine gum or patch as ordered and declined both. Patient tolerating diet and fluids. Patient is on a and seizure medication regime including tegretol, dilantin, and phenobarbitol. Patient on valium PRN for benzo withdrawal, and subutex prn for opiate withdrawal. Patient vital signs at 2000 BP 125/80, P 104, R 20, SPO2 99% on RA, T98.4. CIWA 13. COWS 12. Patient received Subutex 4mg SL and Valium 10 mg PO for benzo and opiate withdrawal. Patient with c/o bodyaches received Robaxin 750 mg PRN with effect noted. COWS 6, CIWA 6, at 2125. Patient with episode of pseudo seizure like activity at 2305. Patient acknowledged that this was of deliberate intent, and felt as though it was either a "panic attack" or a "temper tantrum" (her words). Patient was placed on 1:1 for safety at this time for approximately 3 hours and then discontinued. Patient vital signs at 0000 BP 112/72, P 114, R20, SPO2 98% 0n RA, T 98.4, CIWA 12, COWS 6. Patient received valium 10 mg PO at 0031 for benzo withdrawal. She also received clonidine 0.1 mg for anxiety. Patient vital signs at 0400 BP 90/56, P 78, R 15, SPO2 98% on RA, T 98.6. CIWA/COWS deferred for sleep. Intake 400ml Output 2 voids. Slept 4 hours. Lungs CTA, denies N/V/D. Bowel sounds active all quadrants with last BM one day ago. Fall and seizure precautions in place. 2 padded side rails up for safety. Call light within reach. Bed locked and in lowest position. Patient with history of self mutilation since age 6. Reports no self harm behavior or thoughts. States last episode of cutting in 2016. Denies SI or HI. Report to AM nurse.
--- NOTE | 2017-02-26 07:36 | NUR ---
START OF SHIFT NOTE: Received report from taxi driver supervisor nurse. Patient is a 26 year old female admitted 02-25-17 for benzo and opiate dependence. Pt to start Phenobarb taper this AM. Pt has history of epilepsy. Pt is on patio restriction due to hx of seizures. Pt is alert and oriented X4. Color good, skin warm and dry. Respirations even and unlabored. Resting in bed. Pt on fall and seizure precautions. Side rails padded. Call light within reach. Will continue to monitor.
[2017-02-26] MEDS: PHENYTOIN SODIUM EXTENDED 100 MG CAPSULE.SA PO SCH ×2 (08:12→21:25)
[2017-02-26] MEDS: PHENOBARBITAL 60 MG TABLET PO SCH ×3 (08:12→17:00)
[2017-02-26] MEDS: METHOCARBAMOL 750 MG TABLET PO PRN (08:12)
[2017-02-26] MEDS: CARBAMAZEPINE 200 MG TABLET PO SCH ×2 (08:13→21:38)
[2017-02-26] MEDS: PANTOPRAZOLE 40MG PO SCH (08:13)
[2017-02-26] MEDS: MULTIVITAMINS,THERAPEUTIC TABLET PO SCH (08:20)
[2017-02-26] MEDS: KETOROLAC TROMETHAMINE 30 MG INJ IM PRN (08:20)
[2017-02-26] MEDS: NICOTINE 14 MG/24HR PATCH TD SCH (08:20)
--- NOTE | 2017-02-26 08:25 | NUR ---
VSS COWS 9 CIWA 14 C/O severe muscle cramps in legs. 03/15 Toradol 30mg IM prn and Robaxin 750mg po prn given. Pt refused Nicotine patch. States "I want to go outside."
[2017-02-26 08:28] VITALS: BP 98/56
[2017-02-26] MEDS: BUPRENORPHINE HCL 2 MG TAB.SUBL SL PRN ×2 (08:34→12:13)
--- NOTE | 2017-02-26 08:35 | NUR ---
Subutex 4mg sl prn given for CIWA 14
[2017-02-26] MEDS ORDERED: TUBERCULIN,PURIF.PROT.DERIV. 5 TU/0.1 ML TEST ID ONE (09:00)
--- NOTE | 2017-02-26 09:05 | NUR ---
COWS 10 after Subutex 4mg sl prn
--- NOTE | 2017-02-26 09:24 | NUR ---
Pt states pain is 7/10 after Toradol and Robaxin prn.
[2017-02-26 12:00] VITALS: BP 104/67
--- NOTE | 2017-02-26 12:18 | NUR ---
Valium 10mg po prn given for CiWA 14 and Subutex 4mg sl prn COWS 14
--- NOTE | 2017-02-26 12:45 | NUR ---
COWS 10 afer Subutex 4mg prn
--- NOTE | 2017-02-26 13:18 | NUR ---
Pt CIWA 10 after Valium
--- NOTE | 2017-02-26 13:57 | NUR ---
PT STATUS Patient pressed call light from bathroom, LEAD FRONT DESK AGENT Hadoop Analyst and Charge nurse responded, patient was found on the floor and stated she was sitting on the toilet and as she was getting up she felt dizzy. Alert oriented x4, no bumps bleeding or bruising noted. LEAD FRONT DESK AGENT tech assisted patient back to bed, v/s remain WNL b/p is 102/70, heart rate 82. Safety measures remain in place. Pt remains 1:1 for safety. Addendum: 02/26/17 at 1903 by GIRISH DESHPANDE RN notified and aware. 1:1 continues as ordered.
--- NOTE | 2017-02-26 14:02 | NUR ---
Pt noted to have unspecified convulsions lasting [address] Douglas notified. Rapid response called. High flow 02 via mask and suction at bedside. Ativan 2mg IM given per protocol. Pt noted to have 2nd unspecified convulsions lasting 3 minutes @ 1406. 2nd dose of Ativan 2mg IM administered. B/p 101/71 HR 74 RR 14 Pulse Ox on high flow 02 99%. Convulsions resolved after 2nd dose of Ativan IM. Pt placed on 1:1 observation
[2017-02-26] MEDS: LORAZEPAM 2 MG/1 ML VIAL IM PRN ×3 (14:07→18:22)
--- NOTE | 2017-02-26 14:10 | NUR ---
Dr. Douglas at bedside. Vital signs stable. Pt sleeping.
--- NOTE | 2017-02-26 15:30 | NUR ---
Pt remains asleep BHT @ bedside. Vital signs have remained stable.
[2017-02-26 16:10] VITALS: BP 101/70
--- NOTE | 2017-02-26 16:52 | NUR ---
Therapist prompted client to attend group therapy. Client stated that she would try to attend.
[2017-02-26] MEDS: BUPRENORPHINE HCL 2 MG TAB.SUBL SL SCH ×2 (17:00→21:31)
--- NOTE | 2017-02-26 17:18 | NUR ---
1700 meds held. Pt sleeping. Dr. Douglas notified.
--- NOTE | 2017-02-26 17:43 | NUR ---
VSS No further convulsions noted.
--- NOTE | 2017-02-26 18:20 | NUR ---
Pt noted to have unspecified convulsions. Additional Ativan 2mg IM RD administered per Dr. Douglas. Dr. Douglas at bedside. B/P 110/70 HR 73 RR 16 Pulse Ox 100 on . Convulsions lasted approximately 4 minutes. Pt remains on 1:1
--- NOTE | 2017-02-26 18:54 | NUR ---
# 16F stevenson catheter inserted with 1,000 cc urine returned.
--- NOTE | 2017-02-26 19:12 | NUR ---
END OF SHIFT NOTE: Report given to senior producer nurse . Patient is a 26 year old female admitted 02-25-17 for benzo and opiate dependence. Pt to started Phenobarb taper this AM. Tolerating well. Pt has history of epilepsy. Pt is on patio restriction due to hx of seizures. Pt is alert and oriented X4. Color good, skin warm and dry. Respirations even and unlabored. Toradol 30mg IM prn and Robaxin 750mg po prn given @ 0820. Subutex 4mg sl prn given for CIWA 14@ 0840. Valium 10mg po prn given for CiWA 14 and Subutex 4mg sl prn COWS 14 @ 1220. 1400 Pt noted to have unspecified convulsions lasting [address] Douglas notified. Rapid response called. High flow 02 via mask and suction at bedside. Ativan 2mg IM given per protocol. Pt noted to have 2nd unspecified convulsions lasting 3 minutes @ 1406. 2nd dose of Ativan 2mg IM administered. B/p 101/71 HR 74 RR 14 Pulse Ox on high flow 02 99%. Convulsions resolved after 2nd dose of Ativan IM. Pt placed on 1:1 observation Resting in bed. 17[address] meds held. Pt asleep. Dr. Douglas aware.1820 Pt noted to have unspecified convulsions. Additional Ativan 2mg IM RD administered per Dr. Douglas. Dr. Douglas at bedside. B/P 110/70 HR 73 RR 16 Pulse Ox 100 on 12liters 02. Convulsions lasted approximately 4 minutes. Pt remains on 1:1 Pt on fall and seizure precautions. #16Fr stevenson inserted with 1,000cc clear yellow urine returned. Side rails padded. Call light within reach.
--- NOTE | 2017-02-26 19:22 | NUR ---
Start of shift note Patient is a 26 year old female admitted to [facility] on 02-25-17 for opiate and benzo detox. Patient with past medical history of unspecified epilepsy, GERD, Peptic ulcer disease, Hepatitis C, Unspecified arrhythmia, and Bipolar disorder. Patient has history of seizures and falls and is currently on 1:1 for safety. She is on a phenobarbital taper and Subutex PRN. Last COWs at 12pm 14 Last CIWA 12pm 14. Patient had stevenson cathetar inserted on AM shift for urinary retention with noted 1000ml of output per AM nurse. Safety measures in place, bed locked and in lowest position with two padded side rails up. One to one sitter next to bed. Call light within reach.
[2017-02-26 20:00] VITALS: BP 113/62
[2017-02-26] MEDS ORDERED: PHENOBARBITAL 60 MG TABLET PO SCH (21:00)
[2017-02-26] MEDS ORDERED: BUPRENORPHINE HCL 2 MG TAB.SUBL SL PRN (21:15)
[2017-02-26] MEDS ORDERED: PHENYTOIN SODIUM EXTENDED 100 MG CAPSULE.SA PO ONE (21:31)
[2017-02-26] MEDS ORDERED: CARBAMAZEPINE 100 MG TAB.CHEW ONE (21:31)
[2017-02-27] VITALS: BP 86/55
--- NOTE | 2017-02-27 | NUR ---
COWS/CIWA DEFERRED COWS/CIWA DEFERRED FOR SLEEP AT 0000
[2017-02-27 04:00] VITALS: BP 94/57
--- NOTE | 2017-02-27 04:00 | NUR ---
COWS/CIWA DEFERRED COWS AND CIWA DEFERRED AT 0400 PATIENT ASLEEP.
[2017-02-27] MEDS: METHOCARBAMOL 750 MG TABLET PO PRN (05:28)
--- NOTE | 2017-02-27 05:28 | NUR ---
PRN MEDICATION PATIENT UP AND WITH COMPLAINTS OF PAIN IN BILATERAL LOWER EXTREMITIES 10 OUT OF 10. PATIENT ASSESSED WITH NO ABNORMALITIES, OR EDEMA NOTED. PATIENT WITH FULL ROM NOTED. ROBAXIN 750 MG PO PRN GIVEN AT 0528 WITH EFFECT PENDING. PATIENT REQUESTED AND GIVEN COLD PACKS FOR BILATERAL LOWER EXTREMITIES ALSO TO HELP ALLEVIATE PAIN.
--- NOTE | 2017-02-27 06:26 | NUR ---
REASSESSMENT OF PATIENT PATIENT REASSESSED ONE HOUR AFTER ADMINISTRATION OF ROBAXIN 750 MG PO GIVEN FOR LEG PAIN. PATIENT IN BED, EYES CLOSED, WITH NO FURTHER COMPLAINTS. BREATHING EVEN AND UNLABORED.
--- NOTE | 2017-02-27 06:56 | NUR ---
END OF SHIFT PATIENT IS A 26 YEAR OLD FEMALE ADMITTED TO [facility] ON 02-25-17 FOR OPIATE AND BENZO DETOX. PATIENT IS A FULL CODE AND ON A REGULAR DIET. SHE IS ON A ONE TO ONE FOR SAFETY AFTER MULTIPLE UNSPECIFIED EPILEPTIC EVENTS AND UNWITNESSED FALL WITHOUT INJURY. PATIENT REPORTED TO THIS NURSE THIS EVENING THAT THE EPILEPTIC EVENTS ARE NOT SEIZURES AND SHE FEELS SHE IS HAVING PANIC ATTACKS. THIS WAS REPORTED TO THE CHARGE NURSE WELL MD. PATIENT IS ON FALL AND SEIZURE PRECAUTIONS. BECKWITH CATHETER IN PLACE WITH NOTED CLEAR YELLOW URINE OUTPUT. PATIENT IS ON A PHENOBARBITOL AND SUBUTEX TAPER. VITAL SIGNS AT 2000 BP 113/62, P 87, R 16, T 97.8, SPO2 97% ON RA. COWS 8, CIWA 6. PATIENT VITAL SIGNS AT 0000 BP 86/55, P 76, R 16, T 97.4, SPO2 95% ON RA. CIWA/COWS DEFERRED FOR SLEEP. VS AT 0400 BP 94/57, P 81, R 16, SPO2 92% ON RA, T 98.0 CIWA/COWS DEFERRED FOR SLEEP. PATIENT UP AND WITH COMPLAINTS OF PAIN IN BILATERAL LOWER EXTREMITIES 10 OUT OF 10. PATIENT ASSESSED WITH NO ABNORMALITIES, OR EDEMA NOTED. PATIENT WITH FULL ROM NOTED. ROBAXIN 750 MG PO PRN GIVEN AT 0528. PATIENT ALSO GIVEN COLD PACKS FOR EACH LEG. AFTER ONE HOUR PATIENT REASSESSED AND LYING COMFORTABLY WITH EYES CLOSED. NO FURTHER COMPLAINTS OF PAIN. PATIENT SLEPT A TOTAL OF 8 HOURS. INTAKE 2550 ML, OUTPUT 650 ML CLEAR YELLOW URINE VIA BECKWITH CATHETER. SAFETY MEASURES IN PLACE 1:1 SITTER AT BEDSIDE. REPORT TO AM NURSE.
--- NOTE | 2017-02-27 07:30 | NUR ---
start of shift note: received pt from shift mechanic nurse, pt is in stable condition no s/s of seizure activity. pt remains on 1:1 for seizure precaution. pt's last ciwa 6 and cows 8. pt's F/C intact and patent, draining yellow color urine. pt is currently sleeping. will monitor pt for any changes and continue to meet pts needs
[2017-02-27 07:45] LABS: BASOPHILS % (AUTO) 0.5 % (0.0-2.0); EOSINOPHILS # (AUTO) 0.1 K/uL (0.0-0.7); EOSINOPHILS % (AUTO) 1.4 % (0.0-7.0); HEMATOCRIT 36.3 % (31.2-41.9); HEMOGLOBIN 12.1 g/dL (10.9-14.3); LYMPHOCYTES # (AUTO) 2.8 K/uL (20.0-40.0); LYMPHOCYTES % (AUTO) 47.6 % (20.5-51.5); MEAN CORPUSCULAR HEMOGLOBIN 28.9 uug (24.7-32.8); MEAN CORPUSCULAR HGB CONC 33 g/dL (32.3-35.6); MEAN CORPUSCULAR VOLUME 86.9 fL (75.5-95.3); MONOCYTES # (AUTO) 0.4 K/uL (2.0-10.0); MONOCYTES % (AUTO) 6.6 % (0.0-11.0); NEUTROPHILS # (AUTO) 2.6 K/uL (1.8-8.9); NEUTROPHILS % (AUTO) 43.9 % (38.5-71.5); PLATELET COUNT (AUTO) 325 K/uL (179-408); RED BLOOD CELL COUNT(AUTO) 4.18 MIL/uL (3.63-4.92)
[2017-02-27 08:24] LABS: ALANINE AMINOTRANSFERASE 22 U/L (14-59); ALKALINE PHOSPHATASE 69 U/L (50-136); ASPARTATE AMINOTRANSFERASE 22 U/L (15-37); BILIRUBIN,DIRECT < 0.1 mg/dL (0.0-0.2); BILIRUBIN,TOTAL 0.2 mg/dL (0.2-1.0); CARBON DIOXIDE 37 mmol/L (21-32); CHLORIDE 102 mmol/L (98-107); CREATININE 0.6 mg/dL (0.6-1.3); GLUCOSE 77 mg/dL (74-106); PHENYTOIN (DILANTIN) 18.7 ug/mL (10.0-20.0); TOTAL PROTEIN, SERUM 6.6 g/dL (6.4-8.2); UREA NITROGEN, BLOOD 12 mg/dL (7-18)
[2017-02-27 09:00] VITALS: BP 100/62
[2017-02-27] MEDS: NICOTINE 14 MG/24HR PATCH TD SCH (09:00)
[2017-02-27] MEDS: PHENYTOIN SODIUM EXTENDED 100 MG CAPSULE.SA PO SCH ×3 (09:22→20:14)
[2017-02-27] MEDS: MULTIVITAMINS,THERAPEUTIC TABLET PO SCH (09:22)
[2017-02-27] MEDS: PHENOBARBITAL 60 MG TABLET PO SCH ×3 (09:23→20:14)
[2017-02-27] MEDS: BUPRENORPHINE HCL 2 MG TAB.SUBL SL SCH ×3 (09:23→20:15)
[2017-02-27] MEDS: CARBAMAZEPINE 200 MG TABLET PO SCH ×3 (09:24→20:14)
[2017-02-27] MEDS: PANTOPRAZOLE 40MG PO SCH (09:28)
--- NOTE | 2017-02-27 11:30 | NUR ---
f/c discontinued per pt's request, with new order
[2017-02-27 12:06] LABS: HEPATITIS B SURFACE AG Negative (Negative)
[2017-02-27] MEDS: HYDROXYZINE PAMOATE 25 MG CAPSULE PO PRN (12:58)
[2017-02-27] MEDS: CLONIDINE HCL 0.1 MG TABLET PO PRN (12:58)
--- NOTE | 2017-02-27 12:58 | NUR ---
PRN administration: pt noted with heart rate of 119, prn clonidine was administered, will re-assess effectiveness of medication
[2017-02-27 13:00] VITALS: BP 118/76
--- NOTE | 2017-02-27 13:25 | NUR ---
prn re-assessment: re-assessed pts heart rate, noted to be at 78, pt in resting in bed.
[2017-02-27 17:49] VITALS: BP 104/56
--- NOTE | 2017-02-27 18:47 | NUR ---
end of shift note: pt is in her room, remains on 1:1. pt appears to be sedated and disoriented. pt continuously verbalizes if she does not get medications she feels a seizure coming on. pt is admitted to [facility] for opiate/benzo/meth withdrawal/dependence. pt's last cows 7 and ciwa 6.pt is easily re-direct able. will endorse pt to facilities maintenance technician nurse
--- NOTE | 2017-02-27 19:20 | NUR ---
START OF SHIFT NOTE RECEIVED REPORT FROM DAY SHIFT NURSE. PATIENT IS A 26 YEAR OLD FEMALE ADMITTED FOR OPIATE,BENZO AND METH DEPENDENCE. PATIENT IS ON 1:1 FOR SAFETY AND SEIZURE PRECAUTION. PATIENT IS ALLERGIC TO KEPPRA/LEVETIRACETAM AND BACLOFEN. PATIENT IS ON PHENOBARBITAL TAPER AND SUBUTEX TAPER. PER DAY SHIFT NURSE, PATIENT STILL CONTINUES TO VERBALIZES THAT IF SHE DOES NOT GET MEDICATION THAT SHE FEELS LIKE SEIZURES COMING ON. PATIENT'S BECKWITH WAS REMOVED AND SHE WAS GIVEN PRN CLONIDINE. LAST COWS 7 AND CIWA 6. PATIENT DID NOT HAVE EPISODE OF SEIZURE DURING THE DAY. RECEIVED PATIENT IS IN HER ROOM WITH 1:1. PER PATIENT SHE'S UNABLE TO URINATE. PATIENT NOTED ANXIOUS, AGITATED, RESTLESS, UNSTEADY GAIT, NO N/V, SPEECH IS SLURRED. REDIRECTION PROVIDED. SAFETY MEASURES IN PLACE. CALL LIGHT IN REACH. WILL CONTINUE TO MONITOR.
--- NOTE | 2017-02-27 19:40 | NUR ---
COMMUNICATION BLADDER SCANNER WAS DONE AND RESULTED >999 ML. ABDOMEN NOTED DISTENDED. DR. BUCHANAN MADE AWARE AND MADE NEW ORDER TO INSERT BECKWITH CATHETER. PATIENT REFUSED AND STATES SHE WILL TRY TO URINATE ON HER OWN. EDUCATE PATIENT AND EXPLAINED RISKS/BENEFITS, BUT PATIENT STILL REFUSED. WILL CONTINUE TO MONITOR
--- NOTE | 2017-02-27 19:45 | NUR ---
BECKWITH CATHETER INSERTED PATIENT AGREED TO HAVE BECKWITH CATHETER INSERTED. # 16F BECKWITH CATHETER WAS INSERTED AND THE OUTPUT WAS 950 ML. WILL CONTINUE TO MONITOR.
[2017-02-27 20:00] VITALS: BP 97/60
--- NOTE | 2017-02-27 21:21 | NUR ---
UNSPECIFIED CONVULSION EPISODE PATIENT NOTED WITH UNSPECIFIED CONVULSION THAT LASTED FOR 50 SECONDS. PATIENT'S VS BP-106/72 P-67 T-98.3 R-14 AND O2 SAT AT 99% WITH O2. PATIENT CLOSELY MONITOR AND 1:1 FOR SAFETY AND SEIZURE PRECAUTION . SAFETY MEASURES IN PLACE.
--- NOTE | 2017-02-27 22:08 | NUR ---
ORDER DR. BUCHANAN MADE AN ORDER TO GIVE PATIENT PHENOBARBITAL 32.4 MG.
[2017-02-27] MEDS ORDERED: PHENOBARBITAL 32.4 MG TABLET PO ONE (22:15)
--- NOTE | 2017-02-27 22:30 | NUR ---
PATIENT STATUS PATIENT IN HER ROOM, RESTING. PATIENT'S PHENOBARBITAL WAS GIVEN. VS BP-97/65 T-98.0 P-68 R-15 SpO2 98% IN RA. BECKWITH CATHETER OUTPUT IS 800 ML.
[2017-02-28] VITALS: BP 88/53
[2017-02-28 04:00] VITALS: BP 94/62
--- NOTE | 2017-02-28 04:00 | NUR ---
COWS/CIWA PATIENT SLEEPING. COWS AND CIWA DEFERRED. RESPIRATION EVEN AND UNLABORED. RR 14. SAFETY MEASURES IN PLACE. CALL LIGHT IN REACH. WILL CONTINUE TO MONITOR
--- NOTE | 2017-02-28 07:19 | NUR ---
END OF SHIFT NOTE PATIENT IS A 26 YEAR OLD FEMALE ADMITTED FOR OPIATE,BENZO AND METH DEPENDENCE. PATIENT CONTINUE ON 1:1 FOR SAFETY AND SEIZURE PRECAUTION. PATIENT IS ON PHENOBARBITAL TAPER AND SUBUTEX TAPER. PATIENT WAS UNABLE TO URINATE BEGINNING OF SHIFT. BLADDER SCANNER RESULTED >[address] BUCHANAN MADE AWARE AND MADE NEW ORDER TO INSERT BECKWITH CATHETER #16 [place]. AT 1, PATIENT HAD AN EPISODE OF UNSPECIFIED CONVULSION THAT LASTED [address] BUCHANAN AWARE AND MADE AN ORDER TO GIVEN EXTRA PHENOBARBITAL 32.4 MG. PATIENT WAS ASLEEP THE REST OF THE SHIFT. PATIENT DID NOT REQUIRE ANY PRN MEDICATION. LAST COWS 2 AND CIWA 1. SAFETY MEASURES IN PLACE. CALL LIGHT IN REACH. WILL CONTINUE TO MONITOR. SLEPT 4 HOURS. FLUID INTAKE 2750 ML. BECKWITH CATHETER OUTPUT 2,300. NO BM.
--- NOTE | 2017-02-28 07:27 | NUR ---
BEGINNING OF SHIFT Patient is a 26 year old Female, with admitting Dx: Opiate/bzo Dependence, with substance use of methamphetamine. Patient with past medical history of: bipolar d/o, arrhythmia, hepatitis c, ADHD, epilepsy, GERD. Patient received no PRNs during shift stacker. Per shift stacker patient with one episode of "unspecified convulsion" Patient continues on 1:1 sitter for safety precautions. Patient with F/C patent and draining. Fall and seizure precautions in place. Patient skin is intact. Per shift stacker patient slept for 4 hours, Patient with last cow score of: 2 and ciwa score of: 1. Patient continues on phenobarbital and Subutex taper. Patient received in bed awake, alert and oriented x4, educated patient regarding plan of care for the day and medication regimen with good verbal understanding. Safety measures in place. call light kept with in reach, will continue to monitor closely.
[2017-02-28] MEDS: PHENOBARBITAL 60 MG TABLET PO SCH ×4 (08:40→20:53)
[2017-02-28] MEDS: PANTOPRAZOLE 40MG PO SCH (08:42)
[2017-02-28] MEDS: CARBAMAZEPINE 200 MG TABLET PO SCH ×3 (08:43→20:54)
[2017-02-28] MEDS: MULTIVITAMINS,THERAPEUTIC TABLET PO SCH (08:43)
[2017-02-28] MEDS: PHENYTOIN SODIUM EXTENDED 100 MG CAPSULE.SA PO SCH ×3 (08:43→20:53)
[2017-02-28 08:44] VITALS: BP 91/62
[2017-02-28] MEDS: NICOTINE 14 MG/24HR PATCH TD SCH (08:45)
[2017-02-28] MEDS ORDERED: BUPRENORPHINE HCL 2 MG TAB.SUBL SL SCH (09:00)
--- NOTE | 2017-02-28 09:30 | NUR ---
F/C DISCONTINUE Judd catheter discontinued as per MD orders. Procedure well tolerated. Will continue to monitor closely.
[2017-02-28] MEDS: METHOCARBAMOL 750 MG TABLET PO PRN (12:39)
--- NOTE | 2017-02-28 12:39 | NUR ---
PRN ROBAXIN Patient c/o muscle aches 12/13, provided with non pharmacological interventions with no relief, administered Robaxin as ordered, will monitor effectiveness of medication.
[2017-02-28 13:04] VITALS: BP 98/66
--- NOTE | 2017-02-28 13:39 | NUR ---
ROBAXIN REASSESSMENT patient reports medication effective, current pain level 0/10, will continue to monitor.
[2017-02-28] MEDS: BUPRENORPHINE HCL 2 MG TAB.SUBL SL SCH ×2 (14:29→21:01)
[2017-02-28] MEDS: GABAPENTIN 300 MG CAPSULE PO SCH ×2 (14:29→20:53)
--- NOTE | 2017-02-28 16:18 | NUR ---
MD COMMUNICATION SQL ANALYST called nurse to room, patient was noted in catatonia like position, patient able to respond to commands and squeeze hand, SPO2 RA 97% heart rate: 78. Patient encouraged deep breathing techniques. Patient then verbally responsive, stating she is fine. MD notified. Patient then verbalized she had "night terror" patient reports night terrors because per safety precautions [facility], As per MD. Patient is easily agitated and requires frequent calming reassurance. Continues on 1:1 sitter for safety precautions. Will continue to monitor.
[2017-02-28 16:39] VITALS: BP 105/73
--- NOTE | 2017-02-28 18:56 | NUR ---
END OF SHIFT Patient alert and oriented x4, patient compliant with therapeutic plan of care. Vital signs were stable during shift. Patient continues on Subutex taper as ordered and phenobarbital taper as ordered, well tolerated, no ASE noted. Patient continues with 1: 1 sitter for safety precautions and room restriction for safety precautions. Patients f/c removed during shift, as per MD orders. Patient did not void, MD is aware. Patient encouraged adequate PO Fluid intake as tolerated. 0900 assessment presented with: c/o child, dilated pupils, mild bone and joint aches, irritable, and anxiety, barely sweating and agitation with cow score of: 5 and ciwa score of: 5; 1300 assessment patient presented with: : c/o child, dilated pupils, mild bone and joint aches, irritable, and anxiety, barely sweating and agitation with cow score of: 5 and ciwa score of: 5; 1700 assessment patient presented with: dilated pupils, mild bone and joint aches, mild anxiety , and mild agitation with cow score of: 3 and ciwa score of: 2 Detox medication effective at reducing withdrawal symptom. Patient was administered PRN: Robaxin during shift, medication effective one hour post administration. Patient was encouraged to increase PO fluid intake as tolerated. Patient denies SI/HI. MD is aware of patients current status, continues under close observation. Patient endorsed to night coordinator nurse, all pertinent information discussed.
--- NOTE | 2017-02-28 19:05 | NUR ---
Start of shift note Received report from day shift nurse. Pt is a 26 yo female, A+Ox4, presenting to [facility] for Opiate/Benzo/Meth dependence. Pt has Allergies to Baclofen, Keppra, and Reglan. Pt is on Fall and Seizure precautions. Pt has HX of Bipolar, Hep C, Epilepsy, GERD, Peptic ulcer, and Arrhythmia. Pt is on 5 day Phenobarbital and 5 day Subutex tapers, tolerated well. No s/s of distress noted at this time. Respirations even and unlabored. Will continue to monitor.
[2017-02-28 20:01] VITALS: BP 116/72
--- NOTE | 2017-02-28 21:30 | NUR ---
Unspecified Convulsion Episode Pt noted having unspecified convulsion episode lasting 40 seconds. MD notified and instructions given to closely monitor. Will continue to monitor.
--- NOTE | 2017-02-28 22:40 | NUR ---
Unspecified Convulsion Episode Pt noted having a series of unspecified convulsion episodes lasting a total of 5 minutes. MD notified and orders given fro One time doses of Phenobarbital 60mg, gabapentin 300mg, and Prazosin 1mg and to closely monitor. Medications given and tolerated well. Will continue to monitor.
[2017-02-28] MEDS ORDERED: PHENOBARBITAL 60 MG TABLET PO ONE (22:45)
[2017-02-28] MEDS ORDERED: GABAPENTIN 300 MG CAPSULE PO ONE (22:45)
[2017-02-28] MEDS ORDERED: PRAZOSIN HCL 1 MG CAPSULE PO ONE (22:45)
[2017-03-01] VITALS (8 sets, daily range): BP systolic 96–126; BP diastolic 58–89
--- NOTE | 2017-03-01 06:00 | NUR ---
Unspecified Convulsion Episode Pt noted having unspecified convulsion episode lasting 55 seconds. MD notified and instructions given to closely monitor. Will continue to monitor.
[2017-03-01 06:38] LABS: BASOPHILS % (AUTO) 0.6 % (0.0-2.0); EOSINOPHILS # (AUTO) 0.1 K/uL (0.0-0.7); EOSINOPHILS % (AUTO) 1.3 % (0.0-7.0); HEMATOCRIT 39.6 % (37-47); HEMOGLOBIN 12.6 G/DL (12.0-16.0); LYMPHOCYTES # (AUTO) 2.9 K/UL (0.8-4.8); LYMPHOCYTES % (AUTO) 35.4 % (20.5-51.5); MEAN CORPUSCULAR HEMOGLOBIN 28.2 UUG (27.0-31.0); MEAN CORPUSCULAR HGB CONC 32 g/dL (32.0-37.0); MEAN CORPUSCULAR VOLUME 88.2 FL (81.0-99.0); MONOCYTES # (AUTO) 0.7 K/UL (0.1-1.30); MONOCYTES % (AUTO) 8.5 % (0.0-11.0); NEUTROPHILS # (AUTO) 4.4 K/UL (1.8-8.9); NEUTROPHILS % (AUTO) 54.2 % (38.5-71.5); PLATELET COUNT (AUTO) 367 K/UL (150-450); RED BLOOD CELL COUNT(AUTO) 4.49 MIL/UL (4.2-5.4); WHITE BLOOD COUNT (AUTO) 8.1 K/UL (4.0-11.2)
[2017-03-01 06:49] LABS: ALANINE AMINOTRANSFERASE 23 U/L (14-59); ALKALINE PHOSPHATASE 76 U/L (50-136); ASPARTATE AMINOTRANSFERASE 22 U/L (15-37); BILIRUBIN,DIRECT < 0.1 mg/dL (0.0-0.2); BILIRUBIN,TOTAL 0.2 mg/dL (0.2-1.0); CARBON DIOXIDE 32 mmol/L (21-32); CHLORIDE 102 mmol/L (98-107); CREATININE 0.6 mg/dL (0.6-1.3); GLUCOSE 87 mg/dL (74-106); MAGNESIUM 2.1 mg/dL (1.8-2.4); POTASSIUM 4.3 mmol/L (3.5-5.1); TOTAL PROTEIN, SERUM 7.1 g/dL (6.4-8.2); UREA NITROGEN, BLOOD 16 mg/dL (7-18)
--- NOTE | 2017-03-01 06:59 | NUR ---
End of shift note Pt is a 26 yo female, A+Ox4, presenting to [facility] for Opiate/Benzo/Meth dependence. Pt has Allergies to Baclofen, Keppra, and Reglan. Pt is on Fall and Seizure precautions. Pt has HX of Bipolar, Hep C, Epilepsy, GERD, Peptic ulcer, and Arrhythmia. Pt is on 5 day Phenobarbital and 5 day Subutex tapers, tolerated well. Pt had multiple unspecified convulsion episodes throughout shift. Pt slept for a total of 6 HRS. Last COWS: 3 and Last CIWA: 2 @0400. No s/s of distress noted at this time. Respirations even and unlabored. Will endorse to day shift nurse.
--- NOTE | 2017-03-01 08:24 | NUR ---
START OF SHIFT NOTE 26 year old female, admitted 02/25/17 for Heroin, Xanax and methamphetamine dependence. History bipolar, arrhythmia, unspecified, Hep C, ADHD, epilepsy, GERD, peptic ulcer. Allergy to Baclofen, Keppra, Reglan. ON fall and seizure precautions. On 5 day Phenobarbital and 5 Subutex. Received report from night RN. Pt having multiple pseudoseizures during the night. At 2240 Dr. Douglas notified and ordered Phenobarbital 60 mg, gabapentin, prozasin. During seizures placed on 15 L O2 mask, suction at bedside, placed on side, 1:1 monitor at bedside. At 0600, having pseudoseizures every 10 minutes. On O2 mask. Vital signs WNL. Responding to request to squeeze hand and responds to painful stimulus of sterna rub. Seizure described at slight tremors, more rigidity but no generalized muscle rigidity. Dr. Douglas notified of frequent seizures by Ricky night battery charger tester around 0600. Night RN monitored, pt on side, O2 mask in place. Fall and seizure precautions in place. 0722 patient rounds, Pt sleeping on left side, respirations regular and unlabored, pulse 92, O2 saturation 95 percent. 1:1 monitor at bedside. Bed in low position, side rails up x 2 and padded, call light in reach. Will continue to monitor.
[2017-03-01] MEDS: NICOTINE 14 MG/24HR PATCH TD SCH ×2 (09:00→10:15)
[2017-03-01] MEDS: MULTIVITAMINS,THERAPEUTIC TABLET PO SCH (09:45)
[2017-03-01] MEDS: PHENYTOIN SODIUM EXTENDED 100 MG CAPSULE.SA PO SCH ×3 (09:46→21:00)
[2017-03-01] MEDS: GABAPENTIN 300 MG CAPSULE PO SCH ×2 (09:46→15:00)
[2017-03-01] MEDS: BUPRENORPHINE HCL 2 MG TAB.SUBL SL SCH ×3 (09:47→21:00)
[2017-03-01] MEDS: PHENOBARBITAL 60 MG TABLET PO SCH ×4 (10:15→21:00)
[2017-03-01] MEDS: PANTOPRAZOLE 40MG PO SCH (10:16)
[2017-03-01] MEDS: CARBAMAZEPINE 200 MG TABLET PO SCH ×3 (10:16→21:00)
--- NOTE | 2017-03-01 11:23 | NUR ---
Straight Catheter Pt c/o urinary fullness, states "I feel like my bladder is so full" Dr Douglas gave ok to straight cath x 1. Multiple attempts by primary nurse made. Straight cath inserted, 1100ml removed slowly over 3 attempts over 15 mints. Pt verbalized "I feel so much better". Will continue to monitor pt. Pt continues on 1:1
--- NOTE | 2017-03-01 11:55 | NUR ---
SEIZURE LIKE ACTIVITY 1155 Pt noted to have seizure like activity, body rigid, no tremors or shaking, hands in fists, toes pointed. Pulse and bp WNL, respiration unlabored and regular. Placed on 15 L O2 mask. O2 saturation 100 percent. 1215, seizure like activity ended, pt responds to hand clapping and sternal rub with opening eyes, body flacid, turning independently on side. BP 107/76, pulse 83, O2 sat 100 percent on room air. Dr. Douglas notified. Will continue to monitor. 1:1 monitor continues.
--- NOTE | 2017-03-01 12:30 | NUR ---
COWS and CIWA NOT ASSESSED COWS AND CIWA NOT ABLE TO BE ASSESSED DUE TO PT LETHARGY, BARELY ABLE TO OPEN EYES TO HAND CLAP AND STERNAL RUB.
--- NOTE | 2017-03-01 15:45 | NUR ---
MEDICATIONS NON ADMINISTERED. 1545, Pt very drowsy/lethargic. Barely opens eyes to tactile, speech slurred, weakly obeys to grasp hands bilaterally. Sleeping/snoring when not aroused by RN. Dr. Douglas notified unable to administer 1500 medications due to patient lethargy. Medications held. Will reassess in one hour per MD request.
--- NOTE | 2017-03-01 16:00 | NUR ---
UNABLE TO ASSESS COWS AND CIWA Unable to assess COWS and CIWA due to pt lethargy, barely opens eyes to tactile stimulation and then closes eyes, weak grasp bilaterally to command, speech slurred, falls back asleep when not being stimulated. Dr. Douglas aware. Will continue to monitor.
--- NOTE | 2017-03-01 16:59 | NUR ---
STATUS UPDATE Pt more alert, asking to go to the bathroom, but keeps eyes closed when talking. COWS 2, CIWA 4. Out of bed to bathroom via wheelchair and two person assist.
[2017-03-01] MEDS ORDERED: GABAPENTIN 300 MG CAPSULE PO ONE (17:30)
--- NOTE | 2017-03-01 17:30 | NUR ---
Straight cath Pt c/o "my bladder is so full" and pt is moaning in pain. Dr Douglas notified, orders stevenson catheter, pt refused stevenson "I don't want it to be kept in, Just straight cath me" pt refused to allow indwelling stevenson catheter. Pt had in/out catheter with 800ml of urine noted. Dr Douglas aware. Primary nurse will continue to monitor pt.
[2017-03-01] MEDS: ONDANSETRON ODT 4 MG TAB.RAPDIS SL PRN ×2 (17:51→19:36)
[2017-03-01] MEDS: LORAZEPAM 2 MG/1 ML VIAL IM PRN (18:55)
--- NOTE | 2017-03-01 19:15 | NUR ---
END OF SHIFT NOTE 184 Seizure like activity with rigidity started, turned on side, O2 15 L mask placed on patient, BP 114/81, pulse 89, O2 sat 99 percent. Post seizure activity at 1902 BP 130/79, pulse 86, O2 sat 98 percent. Pt did not respond to verbal or tactile stimuli. Had 2 further seizure like episodes ending at 1905. 1911 vitals 105/70, O2 sat 98 percent, pulse 103. Given ativan [address] Douglas at 185. At 1914, pt drowsy/lethargic, responds to verbal. Report given to Night RN. Call light within reach, side rails up x 2 and padded, bed in low position and locked, seizure and fall precautions in place. 1:1 monitor at bedside.
--- NOTE | 2017-03-01 19:15 | NUR ---
END OF SHIFT NOTE CONTINUED 26 year old female, admitted 02/25/17 for Heroin, Xanax and methamphetamine dependence. History bipolar, arrhythmia, unspecified, Hep C, ADHD, epilepsy, GERD, peptic ulcer. Allergy to Baclofen, Keppra, Reglan. ON fall and seizure precautions. On 5 day Phenobarbital and 5 Subutex. 0722 patient rounds, Pt sleeping on left side, respirations regular and unlabored, pulse 92, O2 saturation 95 percent. 1:1 monitor at bedside. Bed in low position, side rails up x 2 and padded, call light in reach. Will continue to monitor. 1155, seizure like activity with body rigidity, no tremor/shaking, no response to painful stimulus. Placed on side, O2 at 15 L per mask, vitals within normal, O2 sat 100 percent on O2 mask. 1215, seizure like activity resolved. Opens eyes barely to hand clap and painful stimulus. O2 saturation 95 percent on room air. Continued 1:1 monitor. loom fixer supervisor notified MD. 1230, , unable to assess COWS and CIWA due to lethargy/drowsiness, barely opens eyes to hand clap and pain stimulus. 1545 medications not administered and 1600 COWS and CIWA not assessed due to patient lethargy/drowsiness, barely opens eyes to tactile stimulation, weakly follows commands to grasp hands bilaterally. Dr. Douglas notified. 1700, Pt out of bed with assist of 2 persons to bathroom, unable to urinate. Dr. Douglas notified. One time order for Gabapentin and Phenobarbital. Order for stevenson catheter given. Pt refused stevenson but agreed to straight cath. 900 cc urine drained.
--- NOTE | 2017-03-01 19:45 | NUR ---
START OF SHIFT Received report from day shift nurse. Pt is lying still in bed resting with a 1:[address] due to recent unspecified convulsions. She is responsive to verbal stimulation. B/P 105/78, HR 88, RR 20, O2 sat 97% on RA. Ativan IM 2mg administered at 1855. Pt is a 26 yo female admitted to [facility] on 02/25 for opiate and BZD dependence. She is allergic to reglan, keepra, and baclofen. PMH of arrhythmia unspecified, hepatitis C, epilepsy unspecified, GERD, bipolar, and ADHD. On admission pt reported using heroin IV 10-12 grams per day, xanax 12-16mg per day, and methamphetamine 5 grams per day. Pt started phenobabital and subutex tapers on 02/26. Pt is relaxed in bed at this time. Respirations even and unlabored. Fall and seizure precautions in place. Bed is down with call light in reach.
[2017-03-01] MEDS ORDERED: GABAPENTIN 300 MG CAPSULE PO SCH (21:00)
[2017-03-01] MEDS ORDERED: PRAZOSIN HCL 1 MG CAPSULE PO ONE (21:00)
--- NOTE | 2017-03-01 21:59 | NUR ---
2100 Medications Held 2100 medications held due to patient sleeping. aware.
[2017-03-02] VITALS (10 sets, daily range): BP systolic 91–126; BP diastolic 58–86
--- NOTE | 2017-03-02 | NUR ---
0000 COWS and CIWA deferred COWS and CIWA ordered Q4HWA. Pt is lying in bed resting with eyes closed. Vital signs obtained. Respirations even and unlabored. Safety measures in place.
--- NOTE | 2017-03-02 04:00 | NUR ---
0400 COWS and CIWA deferred COWS and CIWA ordered Q4HWA. Pt is lying in bed resting with eyes closed. Vital signs obtained. Respirations even and unlabored. 1:1 sitter at the bedside. Safety measures in place.
--- NOTE | 2017-03-02 07:15 | NUR ---
END OF SHIFT Report provided to day shift nurse. Pt is lying in bed resting with a 1:[address] for safety[address] She is responsive to verbal stimulation. B/P 105/78, HR 88, RR 20, O2 sat 97% on RA. Ativan IM 2mg administered at 1855. Pt is a 26 yo female admitted to [facility] on 02/25 for opiate and BZD dependence. She is allergic to reglan, keppra, and baclofen. PMH of arrhythmia unspecified, hepatitis C, epilepsy unspecified, GERD, bipolar, and ADHD. On admission pt reported using heroin IV 10-12 grams per day, xanax 12-16mg per day, and methamphetamine 5 grams per day. Pt started phenobarbital and subutex tapers on 02/26. Pt slept throughout the shift for a total of 11 hours. Night medications held due to sleep and MD aware. She had no episodes of unspecified convulsions. Vital signs remained stable. She drank 0mL and had 0mL of urine. Fall and seizure precautions in place.
--- NOTE | 2017-03-02 07:30 | NUR ---
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 Pt received in bed awake watching television. Pt alert and oriented to name, place, and time. Perrla. Skin warm and slightly moist to touch. Respirations even and unlabored. Bilateral hand tremors noted slightly. Pt with sitter 1:1 to monitor for safety. It was reported that pt slept for 12 hours last night. Bed on lowest position with side rails x2 up for safety. Call light within reach. No distress noted at this time.
[2017-03-02] MEDS: KETOROLAC TROMETHAMINE 30 MG INJ IM PRN (07:41)
--- NOTE | 2017-03-02 07:42 | NUR ---
PRN Pt observed in room with 1:1 sitter screaming. Pt states has 9/10 generalized body pain. Toradol IM prn per MD order given and tolerated well.
--- NOTE | 2017-03-02 08:00 | NUR ---
BECKWITH Indwelling f/c 16 fr inserted by female nurse and pt tolerated well. No distress noted at this time.
[2017-03-02] MEDS: BUPRENORPHINE HCL 2 MG TAB.SUBL SL SCH ×2 (08:45→21:28)
[2017-03-02] MEDS: PHENYTOIN SODIUM EXTENDED 100 MG CAPSULE.SA PO SCH ×3 (08:46→21:24)
[2017-03-02] MEDS: GABAPENTIN 300 MG CAPSULE PO SCH ×3 (08:46→21:26)
[2017-03-02] MEDS: PHENOBARBITAL 60 MG TABLET PO SCH ×2 (08:50→21:27)
[2017-03-02] MEDS: PANTOPRAZOLE 40MG PO SCH (08:52)
[2017-03-02] MEDS: CARBAMAZEPINE 200 MG TABLET PO SCH ×3 (08:52→21:23)
[2017-03-02] MEDS: MULTIVITAMINS,THERAPEUTIC TABLET PO SCH (09:00)
[2017-03-02] MEDS: NICOTINE 14 MG/24HR PATCH TD SCH (09:00)
--- NOTE | 2017-03-02 10:50 | NUR ---
NSG ENTRY Pt observed in catatonic state, flat affect, blank stare. Pt was assisted to bed from wheelchair with multiple staff. io=087/72 p=76 o2=97% @ RA. Pt able to squeeze hands on command, but does not talk. aware. Staff remained with pt to monitor for safety. Pt also remains on 1:1 for safety.
--- NOTE | 2017-03-02 10:55 | NUR ---
NURSE NOTES WATCH DIAL MAKER states that pt stated," if I don't get an ativan like yesterday, I'm going to have to have a sz in 15 minutes". Addendum: 03/02/17 at 1100 by ASHLEE FLORIAN RN addtl made aware with new order for valium noted and carried out. Addendum: 03/02/17 at 1119 by ASHLEE FLORIAN RN ADDT'L ciwa=12
[2017-03-02] MEDS ORDERED: DIAZEPAM 10 MG TABLET PO ONE (11:00)
[2017-03-02] MEDS: CLONIDINE HCL 0.1 MG TABLET PO PRN (11:09)
[2017-03-02] MEDS: HYDROXYZINE PAMOATE 25 MG CAPSULE PO PRN (11:09)
--- NOTE | 2017-03-02 11:11 | NUR ---
PRN Pt with c/o anxiety. vistaril po prn per MD order given and tolerated well.
--- NOTE | 2017-03-02 11:12 | NUR ---
PRN Pt states feels very anxious. Pt observed raising voice and agitated with pressured speech noted. Catapres po prn per MD order given and tolerated well.
--- NOTE | 2017-03-02 11:55 | NUR ---
PRN EVAL Pt with ciwa=3.
--- NOTE | 2017-03-02 12:12 | NUR ---
PRN EVAL Pt observed on bed with eyes closed resting, but easily arousable to name. Sitter 1:1 with pt to monitor for safety.
[2017-03-02] MEDS ORDERED: DIAZEPAM 5 MG TABLET PO PRN (12:30)
[2017-03-02] MEDS ORDERED: DIAZEPAM 10 MG TABLET PO PRN ×2 (12:30)
--- NOTE | 2017-03-02 16:00 | NUR ---
COWS & CIWA DEFERRED Pt in bed with eyes closed resting and is arousable, but did not stay awake to complete cows and ciwa assessment. Pt with sitter to monitor for safety. No distress noted at this time.
--- NOTE | 2017-03-02 18:55 | NUR ---
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 Pt alert and oriented to name, place, and time. Perrla. Skin warm and slightly moist to touch. Respirations even and unlabored. Bilateral hand tremors noted slightly. Pt demanding at times. Pt also with episodes of raising voice/ yelling during conversations this morning. Pt with sitter 1 :1 for safety. pt with f/c indwealling, in place, intact, patent and is draining yellow colored urine by gravity to container. Pt isolative to room. Pt medication compliant and tolerated well. No ASE noted. Pt was seen by MD today. Bed on lowest position with side rails x2 up for safety. Call light within reach. No distress noted at this time.
--- NOTE | 2017-03-02 19:40 | NUR ---
START OF SHIFT Patient is a 26 year old female admitted for benzodiazepine use disorder, heroin use and methamphetamine use. Patient past use for heroin was IV, 10-12gm/day for 10 years, Xanax daily for 6 years 12-16mg, and methamphetamine IV 5gm/daily for 6 years. Patient's past medical history includes bipolar disorder, arrhythmia (unspecified), Hepatitis C, ADHD, epilepsy unspecified, GERD, and peptic ulcer disease. Patient is a FULL CODE, regular diet, allergic to Reglan, Keppra, and Baclofen. Upon assessment patient is alert and oriented x4. Her skin is intact, warm and slightly moist. Patient has a 16 Fr Judd catheter in place since this morning 0800 for urinary retention. Judd catheter is indwelling, in place, patent and draining clear yellow urine. Patient is on Subutex taper and Phenobarbital taper since 02/26/17. Patient is on seizure and fall precaution, 1:1 APPLICATIONS SALES REPRESENTATIVE in [address] for safety.
--- NOTE | 2017-03-02 21:00 | NUR ---
Nursing Note At 2049 pt was in the wheelchair in the rec room talking with other patients. 1:1 OSD CLERK beside patient. Pt abruptly stood up, lost her balance, and was assisted to the floor by the OSD CLERK. Pt placed back in the wheelchair. Upon assessment pt was A&O and denied pain. Vital signs stable. notified at 2052. Pt placed on room restriction per .
[2017-03-02] MEDS: ONDANSETRON ODT 4 MG TAB.RAPDIS SL PRN (21:24)
[2017-03-02] MEDS: METHOCARBAMOL 750 MG TABLET PO PRN (21:25)
--- NOTE | 2017-03-02 21:25 | NUR ---
PRN ROBAXIN, MOTRIN, AND ZOFRAN Patient complained of nausea, headache, lower back and leg aches. PRN Robaxin, Motrin and Zofran given.
--- NOTE | 2017-03-02 21:40 | NUR ---
PRN ZOFRAN REASSESSMENT PRN Zofran effective; Patient verbalizes that nausea is relieved. Will continue to monitor.
--- NOTE | 2017-03-02 22:25 | NUR ---
PRN ROBAXIN AND MOTRIN REASSESSMENT PRN Robaxin and Motrin effective. Patient verbalizes headache is relieved. Pt verbalizes back and leg aches reduced to 2/10 on pain scale. Will continue to monitor.
--- NOTE | 2017-03-02 23:13 | NUR ---
PRN BENADRYL AND VALIUM Patient verbalizes inability to fall asleep and verbalizes feeling anxious. She is observed to be restless and agitated in bed. Pt has COWS score of 6 and CIWA score of 8. PRN Benadryl and Valium given at this time.
[2017-03-02] MEDS: LORAZEPAM 2 MG/1 ML VIAL IM PRN (23:38)
--- NOTE | 2017-03-02 23:40 | NUR ---
Nursing Note 1:1 DEVIL TENDER called nursing staff to pt's room. Upon entering the room at 2332 pt was observed having unspecified convulsions. The first at 2332 lasting 15 seconds, the second at 2334 lasting another 15 seconds. At 2335 pt has another unspecified convulsion lasting two minutes and PRN Ativan IM was administered. Vital signs were B/P 118/78, HR 120, RR 18, O2 sat 100% 2LPM via mask. Following the unspecified convulsion the patient was responsive to verbal stimulation and opened her eyes. HR 86 and O2 sat 98% on RA.
--- NOTE | 2017-03-03 00:13 | NUR ---
PRN BENADRYL AND VALIUM REASSESSMENT PRN Benadryl and Valium effective. Patient is lying in bed resting well. Respirations even and unlabored. Patient COWS score is 4 and CIWA score is 3 at this time. Prior to this reassessment, patient was administered IM Ativan for unspecified convulsions at 2338.
--- NOTE | 2017-03-03 00:31 | NUR ---
PRN ZOFRAN Patient verbalized feeling nauseous. Patient was observed dry heaving into an emesis bag, no emesis noted. PRN Zofran IM was given.
--- NOTE | 2017-03-03 01:01 | NUR ---
PRN ZOFRAN REASSESSMENT PRN Zofran effective. Patient denies nausea, pt reports nausea is relieved.
[2017-03-03 01:24] VITALS: BP 112/75
--- NOTE | 2017-03-03 01:25 | NUR ---
Nursing note 1:1 CASINO HOST called nursing staff to patient's room. Upon entering patient's room at 0112 she was observed having an unspecified convulsion that lasted 90 seconds. Convulsion ceased for one minute. At 0114 unspecified convulsion started again. Pt is observed swinging her arms and kicking her legs, this lasting 8 minutes. Vital signs are B/P 112/75, HR 88, RR 16, O2 sat 96% on RA. After one minute patient was arousable to verbal stimulation. PERRLA. Safety measures in place. 1:1 CASINO HOST remains at the bedside. Pt is relaxed in bed. Will continue to monitor.
--- NOTE | 2017-03-03 04:00 | NUR ---
COWS AND CIWA DEFERRED COWS and CIWA deferred, patient sleeping, unable to score. Addendum: 03/03/17 at 0517 by EMILY VACA LVN Vital signs obtained. Respirations even and unlabored.
[2017-03-03 04:02] VITALS: BP 93/58
--- NOTE | 2017-03-03 07:25 | NUR ---
END OF SHIFT Report provided to day shift nurse. Patient is a 26 year old female admitted for benzodiazepine use disorder, heroin use and methamphetamine use. Patient past use for heroin was IV, 10-12gm/day for 10 years, Xanax daily for 6 years 12-16mg, and methamphetamine IV 5gm/daily for 6 years. Patient's past medical history includes bipolar disorder, arrhythmia (unspecified), Hepatitis C, ADHD, epilepsy unspecified, GERD, and peptic ulcer disease. Patient is a FULL CODE, regular diet, allergic to Reglan, Keppra, and Baclofen. Patient had episode of unspecified convulsions x2. Patient received the following PRN meds: Zofran SL, Motrin, and Robaxin at 2125. Benadryl PO and Valium PO at 2313. Ativan IM at 2338. Zofran IM at 0031. Patient slept for 6 hours. Intake 740mL, output 350mL, stool x0. Judd catheter remained in place and patent, draining clear, olivia urine. 1:1 SUPERVISING FILM OR VIDEOTAPE EDITOR still in place. Last COWS score 4, CIWA score 3 at 0013. Safety measures in place.
--- NOTE | 2017-03-03 07:45 | NUR ---
START OF SHIFT Rcvd endorsement from ongoing nurse, client is in room, She is a/o to name, place, situation. She presents with depressed mood, flat affect, and skin moist to touch. She reports restless legs, sweats, fatigue, no appetite, and weakness on lower extremities. 1:1 sitter for safety monitoring. 16 F 10mL intact/patent 250mL olivia color, normal odor, no sediments emptied from draining bag. Scattered fading skin discoloration on bilateral arms. Client is admitted for withdrawal from benzodiazepine and opioids. She is on modified 7 day Phenobarbital taper and 6 day Subutex taper, last dose scheduled for today. Last CIWA 4/COWS 3 @ 0400. PRN Robaxin for lower back muscle pain, Motrin for DILLARD, Zofran SL & IM for nausea, Benadryl for inability to asleep, Valium for anxiety, Ativan Inj for seizure, noted effective. Client slept 6 hrs. Client reports allergy to baclofen, keppra, and reglan, full code, regular diet. Client reports hx of withdrawal-induced seizure. Client is on seizure and fall precautions. Side rails x 2 up/padded, bed in lowest/lock position. Call light within reach.
[2017-03-03 08:55] VITALS: BP 109/77
[2017-03-03] MEDS ORDERED: PHENOBARBITAL 60 MG TABLET PO SCH (09:00)
[2017-03-03] MEDS ORDERED: BUPRENORPHINE HCL 2 MG TAB.SUBL SL SCH (09:00)
[2017-03-03] MEDS: MULTIVITAMINS,THERAPEUTIC TABLET PO SCH ×2 (09:00→10:23)
[2017-03-03] MEDS: PHENYTOIN SODIUM EXTENDED 100 MG CAPSULE.SA PO SCH ×3 (10:21→20:12)
[2017-03-03] MEDS: GABAPENTIN 300 MG CAPSULE PO SCH (10:22)
[2017-03-03] MEDS: CARBAMAZEPINE 200 MG TABLET PO SCH ×3 (10:23→20:12)
[2017-03-03] MEDS: NICOTINE 14 MG/24HR PATCH TD SCH (10:23)
[2017-03-03] MEDS: PANTOPRAZOLE 40MG PO SCH (10:24)
--- NOTE | 2017-03-03 10:45 | NUR ---
urine specimen collected for urinalysis.
--- NOTE | 2017-03-03 10:50 | NUR ---
Dr. Douglas gave verbal order to d/c Judd catheter, client notified and verbalized understanding, she tolerated removal of Judd well.
[2017-03-03 12:00] VITALS: BP 126/70
--- NOTE | 2017-03-03 12:35 | NUR ---
Client reports having visual hallucinations, she states, "i am talking to this person near the wall, but I know he is not there." Dr. Estrada notified, he will assess client. Charge nurse is aware.
--- NOTE | 2017-03-03 13:01 | NUR ---
Dr Estrada request to call crisis team to evaluate client for gravely disabled. Call to crisis team was made by charge nurse. Client is in bed, she appears anxious. Sitter by side for safety precautions.
[2017-03-03] MEDS: GABAPENTIN 400 MG CAPSULE PO SCH ×2 (13:08→17:00)
[2017-03-03 13:47] LABS: *BILIRUBIN,URIN NEGATIVE (NEGATIVE); *BLOOD, URINE Trace-intact (NEGATIVE); *COLOR,URINE YELLOW (YELLOW); *KETONES,URINE NEGATIVE (NEGATIVE); *PROTEIN,URINE 1+ (NEGATIVE); *UROBILINOGEN,URINE 0.2 E.U./dl (NORMAL); LEUKOCYTE ESTERASE ,URINE TRACE (NEGATIVE); NITRITE, URINE NEGATIVE (NEGATIVE); PH,URINE 6.5 (5.0-8.0); UGLUCOSE NEGATIVE (NEGATIVE)
[2017-03-03 13:51] LABS: *CLARITY,URINE HAZY (CLEAR)
[2017-03-03 13:52] LABS: BACTERIA,URINE NONE SEEN /HPF (NONE SEEN); CALCIUM OXALATE CRYSTALS,UR FEW /HPF (NONE SEEN); SQUAMOUS EPITHELIAL CELL,UR FEW /HPF (NONE SEEN); TRANSITIONAL EPI CELLS,URINE MODERATE /LPF (NONE SEEN)
[2017-03-03 13:53] LABS: MUCUS,URINE FEW /LPF (0-FEW)
--- NOTE | 2017-03-03 14:00 | NUR ---
Nursing note Urinalysis labs results notified to Dr. Douglas, he ordered Microbid 100mg Q12H for UTI, client verbalized understanding.
--- NOTE | 2017-03-03 14:55 | NUR ---
Crisis team assess client pseudo-seizures, and psychotic behaviors for the last 2 days. Crisis team faxed package to [facility] at [phone] phone # [phone], and Ewa at [facility] at [phone]. He will inform us when there is an available bed. Dr. Estrada was contacted by crisis team who agrees with decision to detain for GD.
--- NOTE | 2017-03-03 15:05 | NUR ---
Nursing note 1:1 MARKETING ANALYTICS MANAGER called nursing staff to client's room @ 1505. Client is in bed, eyes closed and bilateral arms turn inside out and moving bilateral legs in a scissor motions. RN checked eyes, pupil equal, round, ans reactive to light and accommodation. This activity was observed for 1 minute. Client was responsive to tactile and verbal stimuli. Vital signs are T 97.9, B/P 123/82, HR 77, RR 18, O2 sat 98% on RA. Safety measures in place. 1:1 MARKETING ANALYTICS MANAGER remains at the bedside. Client appears calm at this time. Will continue to monitor.
--- NOTE | 2017-03-03 15:47 | NUR ---
Client is emotional, she is crying and requesting Valium and/or Ativan for pain, educated client that those medications are not administered for pain. RN offered PRN pain medications, but client refused Motrin, Tylenol or Robaxin. Will continue to monitor. Dr. Douglas notified.
[2017-03-03 16:00] VITALS: BP 127/80
--- NOTE | 2017-03-03 19:05 | NUR ---
Start of Shift Patient Received. Patient is in bed sleeping but easily aroused to verbal stimuli. Breathing even and non labored. No signs of pain or discomfort noted. Patient is a 26 year old female admitted on 02/25/17 for Opiate and Benzo Dependence under the care of Dr. Douglas. Patient was placed on Modified Subutex and Phenobarbital taper with both tapers completed. Patient verbalizes allergies to Baclofen, Reglan, and Keppra. Wishes to be full code, following a regular diet, placed on fall and seizure precautions. Skin noted intact but noted with multiple scattered discoloration to bilateral arms. Per endorsement, patient was seen and evaluated by Crisis Team and was patient was placed on 5150 for Gravely Disabled. Patient continues on 1:1 sitter for safety. Judd Cath discontinued and patient still unable to void with MD aware. Patient is to start on Macrobid 100mg Q12H with first dose to be given at 2100 for UTI. Patient noted with past medical history of Bipolar Disorder, Arrhythmia disorder, Hep C+, ADHD, Epilepsy Unspecified, GERD, Peptic Ulcer Disease. Per endorsement patient was noted with one episode of pseudoseizures. MD Aware. Patient is currently on fall and seizure precautions. Side rails x 2 up/padded, bed in lowest/lock position. Call light within reach. Will continue to monitor.
--- NOTE | 2017-03-03 19:22 | NUR ---
END OF SHIFT Client is a 26 y/o female admitted to [facility] for withdrawal from benzodiazepine and opioids. She completed a modified 7 day Phenobarbital taper and 6 day Subutex taper. Last CIWA 4/COWS 3 @ 1600. Client is on 5150 for GD since 1450, she has a 1:1 sitter for safety monitoring. 16 F 10mL D/C, client has not void yet, Dr. de la garza notified. Client is on Microbid antibiotic 100mg Q12H staring tonight @ 2100 for UTI. Scattered fading skin discoloration on bilateral arms. Client reports allergy to baclofen, Keppra, and Reglan, full code, regular diet. Adequate PO intake 1250mL. Client consumed 75% of breakfast, refused lunch, dinner she is asleep. Client reports hx of withdrawal-induced seizure. Client is on seizure and fall precautions. Side rails x 2 up/padded, bed in lowest/lock position. Call light within reach.
[2017-03-03 20:09] VITALS: BP 124/81
[2017-03-03] MEDS: NITROFURANTOIN/NITROFURAN MAC 100 MG CAPSULE PO SCH (20:12)
--- NOTE | 2017-03-03 20:30 | NUR ---
Straight Cath x1 Patient is verbalizing inability of voiding. MD made aware with order to straight Cath x1. Patient able to tolerate well with 1000 cc of urine noted. Patient was able to verbalize relief. Will continue to monitor.
[2017-03-03] MEDS ORDERED: PHEN100C4 PO (20:31)
[2017-03-03] MEDS ORDERED: GABA-536 PO (20:31)
[2017-03-03] MEDS ORDERED: NITR100C11 PO (20:31)
[2017-03-03] MEDS ORDERED: CARB200T8 PO ×2 (20:31)
[2017-03-03] MEDS ORDERED: IBUP-1955 PO (20:31)
[2017-03-03] MEDS ORDERED: HYDR-3895 PO (20:31)
--- NOTE | 2017-03-03 21:15 | NUR ---
5150 Transfer/Location Pending: Sid from Crisis Team reports that [facility] unable to accept patient for 5150 hold d/t not being a contracted facility for [facility]. Sid recommends transfer to [facility]. Contact information provided by Sid.
--- NOTE | 2017-03-03 21:45 | NUR ---
5150 Transfer/Location Pending: Nurse from [facility] called [place], reports they are unable to accept patient for 5150 hold d/t not being a contracted facility for [facility]. Sid from Crisis Team notified, and states that he will contact [facility] in the morning for a list of contracted facilities for 5150 hold transfer. Will endorse to day shift for follow-up with Sid.
[2017-03-04 00:33] VITALS: BP 109/73
[2017-03-04 04:30] VITALS: BP 112/83
--- NOTE | 2017-03-04 07:16 | NUR ---
End of Shift Patient is in bed sleeping but easily aroused to verbal stimuli. Breathing even and non labored. Patient is a 26 year old female admitted on 02/25/17 for Opiate and Benzo Dependence under the care of Dr. Douglas. Patient completed a modified Subutex and Phenobarbital taper with both tapers completed. Allergies to Baclofen, Reglan, and Keppra. Full code, Regular diet, placed on fall and seizure precautions. Skin noted intact but noted with multiple scattered discoloration to bilateral arms. Patient remains on 1:1 for safety and remains on 5150 hold due to Gravely Disabled with transfer location pending. Patient was started on Macrobid 100mg Q12H. Patient noted with past medical history of Bipolar Disorder, Arrhythmia disorder, Hep C+, ADHD, Epilepsy Unspecified, GERD, Peptic Ulcer Disease. Patient was straight catheterized x2 with total output of 1800. Fluids tolerated well. Last noted COWS 5 and CIWA 4. No behavioral episodes noted. Patient remains on fall and seizure precautions. Side rails x 2 up/padded, bed in lowest/lock position. Call light within reach. Will endorse to continue plan of care as ordered. Addendum: 03/04/17 at 0717 by CHEY SMITH LVN Amended: Links added.
--- NOTE | 2017-03-04 07:30 | NUR ---
END OF SHIFT Rcvd client from ongoing nurse, client is in bed, she sounds asleep, easy to arouse, RR 16, even, non-labored. Client is a 26 y/o female admitted to [facility] for withdrawal from benzodiazepine and opioids. She completed on 03/03/17 a modified 7 day Phenobarbital taper and 6 day Subutex taper. Last CIWA 4/COWS 5 @ 1999. Client is on 5150 for GD since 03/03/17 @ 1450, she has a 1:1 sitter for safety monitoring. Client is on Microbid antibiotic 100mg Q12H staring tonight @ 2100 for UTI. Last night client was with urinary retention, straight cath x 2 performed, first time 1000mL olivia urine returned and 800mL urine the second straight, client tolerated well. Client slept 9 hrs. Scattered fading skin discoloration on bilateral arms. Client reports allergy to baclofen, Keppra, and Reglan, full code, regular diet Client reports hx of withdrawal-induced seizure. Client is on seizure and fall precautions. Side rails x 2 up/padded, bed in lowest/lock position. Call light within reach. Addendum: 03/04/17 at 0915 by JESSICA BELTRÁN RN START OF SHIFT
[2017-03-04 08:44] VITALS: BP 118/68
[2017-03-04] MEDS: ONDANSETRON ODT 4 MG TAB.RAPDIS SL PRN (08:53)
--- NOTE | 2017-03-04 08:53 | NUR ---
PRN Zofran 4mf SL for nausea, no episodes of emesis. Will continue to monitor.
[2017-03-04] MEDS: CARBAMAZEPINE 200 MG TABLET PO SCH (08:54)
[2017-03-04] MEDS: MULTIVITAMINS,THERAPEUTIC TABLET PO SCH (08:54)
[2017-03-04] MEDS: PANTOPRAZOLE 40MG PO SCH (08:54)
[2017-03-04] MEDS: PHENYTOIN SODIUM EXTENDED 100 MG CAPSULE.SA PO SCH (08:54)
[2017-03-04] MEDS: NITROFURANTOIN/NITROFURAN MAC 100 MG CAPSULE PO SCH (08:54)
[2017-03-04] MEDS: NICOTINE 14 MG/24HR PATCH TD SCH (08:54)
[2017-03-04] MEDS: GABAPENTIN 400 MG CAPSULE PO SCH ×2 (08:54→13:00)
--- NOTE | 2017-03-04 09:23 | NUR ---
Reassessment PRN Zofran 4mf SL for nausea noted effective, client reports relief from nausea. Will continue to monitor.
--- NOTE | 2017-03-04 10:04 | NUR ---
Endorsed care to RN, client is is bed, sound asleep, easy to arouse, she continues on 1:1 sitter promoting safety.
--- NOTE | 2017-03-04 10:05 | NUR ---
Endorsement received. All pertinent information received will continue to monitor and care for patient.
[2017-03-04 12:00] VITALS: BP 119/70
--- NOTE | 2017-03-04 13:15 | NUR ---
Report given Contacted Caity from [facility] in regards to patients transfer. Report given about patients status and history. all pertinent information given, will contact transportation and continue to monitor patient until transportation arrives.
--- NOTE | 2017-03-04 13:26 | NUR ---
Contacted Transportation Contacted Patria from [facility]. Response in regards to transporting patient to [place], report given ETA 30min will continue to monitor patient.
--- NOTE | 2017-03-04 14:15 | NUR ---
Patient DISCHARGED Pt was picked up by Med response, report given to EMT in regard to patients health status and history, pt left the building via stretcher accommodated by biometrics analyst. Pt is in stable condition leaving the facility, vitals WNL. All personal belongings including medications returned to patient.
== END 2017-03-04 14:15 | DRG 895 ==
LOC: SRC 17:40
PROVIDERS: ADMIT Internal Medicine; ATTEND Internal Medicine
PROC: HZ2ZZZZ Detoxification Services for Substance Abuse Treatment (ICD-10-PCS; principal; 2017-02-25)
PROC: HZ31ZZZ Individual Counseling for Substance Abuse Treatment, Behavioral (ICD-10-PCS; 2017-02-26)
DX: F11.23 Opioid dependence with withdrawal (principal); G40.911 Epilepsy, unspecified, intractable, with status epilepticus; F31.9 Bipolar disorder, unspecified; F29 Unspecified psychosis not due to a substance or known physiological condition; F13.232 Sedative, hypnotic or anxiolytic dependence with withdrawal with perceptual disturbance; F15.23 Other stimulant dependence with withdrawal; K27.7 Chronic peptic ulcer, site unspecified, without hemorrhage or perforation; Z59.0 Homelessness; K21.9 Gastro-esophageal reflux disease without esophagitis; Z91.5 Personal history of self-harm; F17.210 Nicotine dependence, cigarettes, uncomplicated; Z91.19 Patient's noncompliance with other medical treatment and regimen; E86.0 Dehydration; I49.9 Cardiac arrhythmia, unspecified; Z76.5 Malingerer [conscious simulation]; B19.20 Unspecified viral hepatitis C without hepatic coma; F90.9 Attention-deficit hyperactivity disorder, unspecified type; Z59.1 Inadequate housing
CPT/HCPCS: 36415; 80307; 80345; 80346; 83735; 84703; 85025; 86580; 86592; 86705; 86803; 87340; 87806; 95819; C1758; G0480; J1885; J2060; J2405; J8499; Q0162; Q0163